=== PATIENT | male | born 1950 | race African-American/Black ===

== ENCOUNTER 2021-06-07 06:58 | Emergency (ER) | payer SELFPAY ==
[2021-06-07 07:33] VITALS: BP 165/89; PULSE 96; TEMP 98.2; BMI 22.8
== END 2021-06-07 08:00 | disposition home or self-care (01) ==
LOC: JER 06:58 → JERFT 06:58
DX: Z76.0 Encounter for issue of repeat prescription (principal)
CPT/HCPCS: 99281-25

== ENCOUNTER 2021-07-11 13:26 | Emergency (ER) | payer OTHER ==
[2021-07-11 13:31] VITALS: BP 162/94; PULSE 97; TEMP 97.8; BMI 24.3
== END 2021-07-11 14:11 | disposition home or self-care (01) ==
LOC: JERFT 13:26
DX: F31.9 Bipolar disorder, unspecified (principal); Z76.0 Encounter for issue of repeat prescription
CPT/HCPCS: 99281-25

== ENCOUNTER 2022-05-03 17:49 | Observation (INO) | payer OTHER ==
[2022-05-03] MEDS ORDERED: SODIUM CHLORIDE 0.9% 1000 ML INFUS.BAG IV ONE (18:17)
[2022-05-03] MEDS ORDERED: CEFTRIAXONE 1,000 MG in DEXTROSE 5%-WATER - 50 ML IVPB ONE (18:17)
[2022-05-03] MEDS ORDERED: ACETAMINOPHEN 1000 MG/100 ML BAG IVPB ONE (18:17)
[2022-05-03] MEDS ORDERED: CEFTRIAXONE 1 GM/50 ML BAG ONE (18:19)
[2022-05-03] MEDS ORDERED: ACETAMINOPHEN INJECTION 100 ML IVPB ONE (18:19)
[2022-05-03 18:44] LABS: VENOUS BASE EXCESS -1.6 mmol/L (-2-2); VENOUS PH 7.411 (7.310-7.410)
[2022-05-03 18:51] LABS: BASO % 2.3 % (0-2.0); EOS % 0.4 % (0-4.5); HEMATOCRIT 44.5 % (35.4-49); HEMOGLOBIN 14.8 GM/dL (11.7-16.9); LYMPH % 6.9 % (8-40); MCH 28.5 pg (25.7-33.7); MCHC 33.2 g/dl (32.0-35.9); MEAN PLT VOLUME 8.1 fl (7.5-11.1); MONO % 10.1 % (3.8-10.2); NEUT % 80.3 % (42.8-82.8); PLATELET COUNT 292 10^3/uL (134-434); RBC 5.17 M/mm3 (4.00-5.60); RDW 15.5 % (11.9-15.9); WHITE BLOOD COUNT 11.6 K/mm3 (4.0-10.0)
[2022-05-03 18:59] LABS: INR 1.21 (0.83-1.09)
[2022-05-03 19:02] LABS: ACTIVATED PTT 32.4 SECONDS (25.2-36.5)
[2022-05-03 19:05] LABS: CHLORIDE 108 mmol/L (98-107); SODIUM 136 mmol/L (136-145)
[2022-05-03 19:08] LABS: ALBUMIN 3.8 g/dl (3.4-5.0); ANION GAP 6 MMOL/L (8-16); BLOOD UREA NITROGEN 19.4 mg/dL (7-18); CO2 22 mmol/L (21-32); GLUCOSE,RANDOM 106 mg/dL (74-106); MAGNESIUM 2.2 mg/dL (1.8-2.4)
[2022-05-03 19:11] LABS: CREATININE 2.3 mg/dL (0.55-1.3); SGOT/AST 13 U/L (15-37); SGPT/ALT 13 U/L (13-61)
[2022-05-03 19:12] LABS: BILIRUBIN,TOTAL 0.6 mg/dL (0.2-1); TOT PROT 8.3 g/dl (6.4-8.2)
[2022-05-03 19:14] LABS: ALK PHOS 196 U/L (45-117); LACTIC ACID 2.5 mmol/L (0.4-2.0)
[2022-05-03 22:38] LABS: LACTIC ACID 2.1 mmol/L (0.4-2.0)
[2022-05-04] MEDS ORDERED: SODIUM CHLORIDE 1,000 ML IV SCH ×2 (00:15)
[2022-05-04] MEDS ORDERED: REMDESIVIR 200 MG in SODIUM CHLORIDE 250 ML IVPB ONE (01:21)
[2022-05-04 04:26] LABS: LDH 159 U/L (87-246)
[2022-05-04] MEDS: HEPARIN NA (PORCINE) 5,000 UNITS/ML 1ML VIAL SQ SCH ×3 (06:05→22:45)
[2022-05-04 06:34] LABS: BASO % 0.7 % (0-2.0); EOS % 0.3 % (0-4.5); HEMATOCRIT 41.8 % (35.4-49); HEMOGLOBIN 13.8 GM/dL (11.7-16.9); MCH 28.6 pg (25.7-33.7); MEAN CELL VOLUME 86.8 fl (80-96); MEAN PLT VOLUME 8.2 fl (7.5-11.1); PLATELET COUNT 251 10^3/uL (134-434); RBC 4.81 M/mm3 (4.00-5.60); RDW 15.1 % (11.9-15.9)
[2022-05-04 07:02] LABS: ALBUMIN 3.2 g/dl (3.4-5.0); BLOOD UREA NITROGEN 17.3 mg/dL (7-18); CALCIUM 9.1 mg/dL (8.5-10.1)
[2022-05-04 07:05] LABS: PHOSPHOROUS 2.4 mg/dL (2.5-4.9)
[2022-05-04 07:06] LABS: CREATININE 1.7 mg/dL (0.55-1.3)
[2022-05-04 07:07] LABS: BILIRUBIN,TOTAL 0.4 mg/dL (0.2-1); TOT PROT 7.2 g/dl (6.4-8.2)
[2022-05-04 08:31] LABS: EPI CELLS 23 /uL (0-25.1); HYALINE CASTS 2 /uL (0-3.1); URINE APPEARANCE CLEAR; URINE BACTERIA 48 /uL (0-1359); URINE BILIRUBIN NEGATIVE (NEGATIVE); URINE COLOR YELLOW; URINE GLUCOSE (UA) NEGATIVE (NEGATIVE); URINE KETONE NEGATIVE (NEGATIVE); URINE LEUK ESTERASE 1+ (NEGATIVE); URINE NITRITE NEGATIVE (NEGATIVE); URINE PROTEIN 1+ (NEGATIVE); URINE RBC 10 /uL (0-23.9); URINE UROBILINOGEN 0.2 mg/dL (0.2-1.0); URINE WBC 75 /uL (0-25.8)
[2022-05-04] MEDS ORDERED: ARIPiprazole 5 MG TABLET ONE (09:12)
[2022-05-04] MEDS ORDERED: amLODIPine BESYLATE 10 MG TABLET (FP) ONE (09:12)
[2022-05-04 10:07] LABS: MAGNESIUM 2.1 mg/dL (1.8-2.4)
[2022-05-04] MEDS: ARIPiprazole 5 MG TABLET PO SCH (10:31)
[2022-05-04] MEDS: amLODIPine BESYLATE 10 MG TABLET (FP) PO SCH (10:32)
[2022-05-04 11:54] VITALS: BMI 26.4
[2022-05-04 12:47] LABS: EPI CELLS 20 /uL (0-25.1); HYALINE CASTS 2 /uL (0-3.1); PH,URINE 7.5 (5.0-8.0); URINE APPEARANCE CLEAR; URINE BILIRUBIN NEGATIVE (NEGATIVE); URINE COLOR YELLOW; URINE GLUCOSE (UA) NEGATIVE (NEGATIVE); URINE KETONE NEGATIVE (NEGATIVE); URINE LEUK ESTERASE 1+ (NEGATIVE); URINE NITRITE POSITIVE (NEGATIVE); URINE PROTEIN TRACE (NEGATIVE); URINE RBC 13 /uL (0-23.9); URINE UROBILINOGEN 0.2 mg/dL (0.2-1.0); URINE WBC 71 /uL (0-25.8)
[2022-05-04 13:16] LABS: URINE BACTERIA 5.7 /uL (0-1359)
[2022-05-04] MEDS: ACETAMINOPHEN 325 MG TABLET (FP) PO PRN (17:00)
[2022-05-04] MEDS ORDERED: REMDESIVIR 100 MG in SODIUM CHLORIDE 250 ML IVPB ONE (22:00)
[2022-05-05] MEDS: HEPARIN NA (PORCINE) 5,000 UNITS/ML 1ML VIAL SQ SCH ×3 (06:01→22:44)
[2022-05-05 08:17] LABS: BASO % 0.8 % (0-2.0); EOS % 0.3 % (0-4.5); HEMATOCRIT 44.1 % (35.4-49); HEMOGLOBIN 14.7 GM/dL (11.7-16.9); LYMPH % 22.2 % (8-40); MCH 28.7 pg (25.7-33.7); MCHC 33.3 g/dl (32.0-35.9); MEAN CELL VOLUME 86.2 fl (80-96); MEAN PLT VOLUME 8.4 fl (7.5-11.1); MONO % 16.3 % (3.8-10.2); NEUT % 60.4 % (42.8-82.8); PLATELET COUNT 243 10^3/uL (134-434); RBC 5.12 M/mm3 (4.00-5.60); RDW 15.5 % (11.9-15.9); WHITE BLOOD COUNT 6.8 K/mm3 (4.0-10.0)
[2022-05-05 08:29] LABS: CALCIUM 9.2 mg/dL (8.5-10.1)
[2022-05-05 08:30] LABS: BLOOD UREA NITROGEN 20.6 mg/dL (7-18)
[2022-05-05 08:33] LABS: CREATININE 1.5 mg/dL (0.55-1.3)
[2022-05-05] MEDS: amLODIPine BESYLATE 10 MG TABLET (FP) PO SCH (10:28)
[2022-05-05] MEDS: ARIPiprazole 5 MG TABLET PO SCH (11:36)
[2022-05-05] MEDS: LACTATED RINGERS SOLUTION 1,000 ML/1,000 ML INFUS.BAG IV SCH (19:37)
[2022-05-05] MEDS: ACETAMINOPHEN 325 MG TABLET (FP) PO PRN (19:58)
[2022-05-05] MEDS ORDERED: REMDESIVIR 100 MG in SODIUM CHLORIDE 250 ML IVPB ONE (22:00)
[2022-05-06] MEDS: HEPARIN NA (PORCINE) 5,000 UNITS/ML 1ML VIAL SQ SCH ×3 (06:49→21:02)
[2022-05-06 08:00] LABS: HEMATOCRIT 41.5 % (35.4-49); HEMOGLOBIN 13.8 GM/dL (11.7-16.9); MCH 28.7 pg (25.7-33.7); MCHC 33.3 g/dl (32.0-35.9); MEAN PLT VOLUME 8.9 fl (7.5-11.1); PLATELET COUNT 230 10^3/uL (134-434); RBC 4.82 M/mm3 (4.00-5.60); RDW 15.3 % (11.9-15.9); WHITE BLOOD COUNT 5.4 K/mm3 (4.0-10.0)
[2022-05-06 08:15] LABS: BLOOD UREA NITROGEN 20.8 mg/dL (7-18); CALCIUM 8.5 mg/dL (8.5-10.1); MAGNESIUM 1.9 mg/dL (1.8-2.4)
[2022-05-06 08:19] LABS: CREATININE 1.4 mg/dL (0.55-1.3); PHOSPHOROUS 3.4 mg/dL (2.5-4.9)
[2022-05-06] MEDS: amLODIPine BESYLATE 10 MG TABLET (FP) PO SCH (09:16)
[2022-05-06] MEDS: ARIPiprazole 5 MG TABLET PO SCH (09:16)
[2022-05-06] MEDS: DEXAMETHASONE 4 MG TABLET (FP) PO SCH (13:39)
[2022-05-06] MEDS: LACTATED RINGERS SOLUTION 1,000 ML/1,000 ML INFUS.BAG IV SCH (19:38)
[2022-05-06] MEDS ORDERED: REMDESIVIR 100 MG in SODIUM CHLORIDE 250 ML IVPB ONE (22:00)
[2022-05-07] MEDS: HEPARIN NA (PORCINE) 5,000 UNITS/ML 1ML VIAL SQ SCH ×3 (06:55→22:13)
[2022-05-07 07:41] LABS: BLOOD UREA NITROGEN 25.4 mg/dL (7-18)
[2022-05-07 07:44] LABS: CREATININE 1.4 mg/dL (0.55-1.3)
[2022-05-07 07:46] LABS: CALCIUM 9.8 mg/dL (8.5-10.1)
[2022-05-07 08:07] LABS: HEMATOCRIT 44.5 % (35.4-49); MCH 28.9 pg (25.7-33.7); MCHC 33.8 g/dl (32.0-35.9); MEAN CELL VOLUME 85.7 fl (80-96); MEAN PLT VOLUME 8.7 fl (7.5-11.1); PLATELET COUNT 235 10^3/uL (134-434); RBC 5.19 M/mm3 (4.00-5.60); RDW 15.3 % (11.9-15.9); WHITE BLOOD COUNT 5.5 K/mm3 (4.0-10.0)
[2022-05-07] MEDS: DEXAMETHASONE 4 MG TABLET (FP) PO SCH (10:05)
[2022-05-07] MEDS: ARIPiprazole 5 MG TABLET PO SCH (10:05)
[2022-05-07] MEDS: amLODIPine BESYLATE 10 MG TABLET (FP) PO SCH (10:06)
[2022-05-07] MEDS ORDERED: REMDESIVIR 100 MG in SODIUM CHLORIDE 250 ML IVPB ONE (22:00)
[2022-05-08] MEDS: HEPARIN NA (PORCINE) 5,000 UNITS/ML 1ML VIAL SQ SCH (06:00)
[2022-05-08 07:58] LABS: HEMATOCRIT 42.6 % (35.4-49); HEMOGLOBIN 14.3 GM/dL (11.7-16.9); MCH 28.6 pg (25.7-33.7); MCHC 33.5 g/dl (32.0-35.9); MEAN CELL VOLUME 85.4 fl (80-96); MEAN PLT VOLUME 8.8 fl (7.5-11.1); PLATELET COUNT 275 10^3/uL (134-434); RBC 4.99 M/mm3 (4.00-5.60); RDW 15.4 % (11.9-15.9); WHITE BLOOD COUNT 14.8 K/mm3 (4.0-10.0)
[2022-05-08 08:12] LABS: CALCIUM 9.4 mg/dL (8.5-10.1)
[2022-05-08 08:13] LABS: BLOOD UREA NITROGEN 32.5 mg/dL (7-18)
[2022-05-08 08:16] LABS: CREATININE 1.5 mg/dL (0.55-1.3); PHOSPHOROUS 2.9 mg/dL (2.5-4.9)
[2022-05-08 09:18] VITALS: RESP 20
[2022-05-08] MEDS: ARIPiprazole 5 MG TABLET PO SCH (09:29)
[2022-05-08] MEDS: DEXAMETHASONE 4 MG TABLET (FP) PO SCH (09:29)
[2022-05-08] MEDS: amLODIPine BESYLATE 10 MG TABLET (FP) PO SCH (09:29)
[2022-05-08 14:13] VITALS: BP 151/81; PULSE 90; TEMP 97.6
[2022-05-08] MEDS ORDERED: REMDESIVIR 100 MG in SODIUM CHLORIDE 250 ML IVPB ONE (22:00)
== END 2022-05-08 16:44 | disposition home or self-care (01) ==
LOC: JER 17:49 → JERBED 22:46 → J4W 05-04 11:25
PROVIDERS: ADMIT Internal Medicine; ATTEND Internal Medicine
PROC: 3E033NZ Introduction of Analgesics, Hypnotics, Sedatives into Peripheral Vein, Percutaneous Approach (ICD-10-PCS; principal; 2022-05-03)
PROC: 3E03329 Introduction of Other Anti-infective into Peripheral Vein, Percutaneous Approach (ICD-10-PCS; 2022-05-03)
PROC: 3E023GC Introduction of Other Therapeutic Substance into Muscle, Percutaneous Approach (ICD-10-PCS; 2022-05-03)
PROC: 3E0337Z Introduction of Electrolytic and Water Balance Substance into Peripheral Vein, Percutaneous Approach (ICD-10-PCS; 2022-05-03)
PROC: 3E033GC Introduction of Other Therapeutic Substance into Peripheral Vein, Percutaneous Approach (ICD-10-PCS; 2022-05-03)
PROC: 3E0337Z Introduction of Electrolytic and Water Balance Substance into Peripheral Vein, Percutaneous Approach (ICD-10-PCS; 2022-05-03)
DX: U07.1 COVID-19 (principal); N17.9 Acute kidney failure, unspecified; I10 Essential (primary) hypertension; F31.9 Bipolar disorder, unspecified; R79.89 Other specified abnormal findings of blood chemistry
CPT/HCPCS: 0241U-QW; 36415; 71045-TC-FY; 76775-TC; 80048; 80053; 81003; 82436; 82550; 82553; 82570; 82728; 82803; 83605; 83615; 83735; 84100; 84133; 84300; 84443; 84484; 85025; 85027; 85379; 85610; 85730; 86140; 86850; 86900; 86901; 87040; 87086; 93005; 93010; 96361; 96365; 96366; 96367; 96368; 96372; 96375; 99285-25; C9399; G0378; J1644

== ENCOUNTER 2022-09-22 10:17 | Emergency (ER) | payer SELFPAY ==
[2022-09-22 10:28] VITALS: BP 167/95; PULSE 97; RESP 16; TEMP 98.2; BMI 30.8
== END 2022-09-22 11:36 | disposition home or self-care (01) ==
LOC: JERFT 10:17
DX: Z76.0 Encounter for issue of repeat prescription (principal)
CPT/HCPCS: 99281-25

== ENCOUNTER 2022-12-11 11:40 | Inpatient (IN) | payer OTHER ==
[2022-12-11 13:06] LABS: BASO % 0.7 % (0-2.0); EOS % 0.4 % (0-4.5); HEMATOCRIT 46.8 % (35.4-49); HEMOGLOBIN 15.4 GM/dL (11.7-16.9); LYMPH % 11.8 % (8-40); MCH 28.1 pg (25.7-33.7); MCHC 32.8 g/dl (32.0-35.9); MEAN CELL VOLUME 85.8 fl (80-96); MEAN PLT VOLUME 8.3 fl (7.5-11.1); MONO % 7.5 % (3.8-10.2); NEUT % 79.6 % (42.8-82.8); PLATELET COUNT 275 10^3/uL (134-434); RBC 5.46 M/mm3 (4.00-5.60); RDW 15.3 % (11.9-15.9); WHITE BLOOD COUNT 6.4 K/mm3 (4.0-10.0)
[2022-12-11 13:20] LABS: EPI CELLS 1 /uL (0-25.1); HYALINE CASTS 0 /uL (0-3.1); PH,URINE 6.5 (5.0-8.0); URINE APPEARANCE CLOUDY; URINE BACTERIA 2570 /uL (0-1359); URINE BILIRUBIN NEGATIVE (NEGATIVE); URINE COLOR YELLOW; URINE GLUCOSE (UA) NEGATIVE (NEGATIVE); URINE KETONE NEGATIVE (NEGATIVE); URINE LEUK ESTERASE 2+ (NEGATIVE); URINE NITRITE POSITIVE (NEGATIVE); URINE PROTEIN TRACE (NEGATIVE); URINE UROBILINOGEN 0.2 mg/dL (0.2-1.0); URINE WBC 399 /uL (0-25.8)
[2022-12-11 13:24] LABS: CALCIUM 10.5 mg/dL (8.5-10.1); POTASSIUM 4.4 mmol/L (3.5-5.1)
[2022-12-11 13:25] LABS: ALBUMIN 3.4 g/dl (3.4-5.0); BLOOD UREA NITROGEN 10.4 mg/dL (7-18); MAGNESIUM 1.8 mg/dL (1.8-2.4)
[2022-12-11 13:28] LABS: CREATININE 1.6 mg/dL (0.55-1.3)
[2022-12-11 13:30] LABS: BILIRUBIN,TOTAL 0.9 mg/dL (0.2-1)
[2022-12-11 13:43] LABS: METHADONE, UR NEGATIVE (NEGATIVE); OPIATES, URI NEGATIVE (NEGATIVE); PHENCYCLIDINE,URINE NEGATIVE (NEGATIVE); URINE AMPHETAMINES NEGATIVE (NEGATIVE); URINE BARBITURATES NEGATIVE (NEGATIVE)
[2022-12-11 13:44] LABS: URINE BENZODIAZEPINES NEGATIVE (NEGATIVE)
[2022-12-11 13:46] LABS: COCAINE, UR NEGATIVE (NEGATIVE)
[2022-12-11] MEDS ORDERED: CEFTRIAXONE 1 GM/50 ML BAG ONE (13:47)
[2022-12-11 14:27] LABS: YEAST NEGATIVE (NEGATIVE)
[2022-12-11] MEDS ORDERED: SODIUM CHLORIDE 0.9% 500 ML INFUS.BAG IV ONE (16:17)
[2022-12-11 16:36] VITALS: BMI 22.4
[2022-12-11] MEDS ORDERED: SODIUM CHLORIDE 1,000 ML IV ONE (17:00)
[2022-12-11] MEDS: HEPARIN NA (PORCINE) 5,000 UNITS/ML 1ML VIAL SQ SCH (21:25)
[2022-12-12] MEDS: HEPARIN NA (PORCINE) 5,000 UNITS/ML 1ML VIAL SQ SCH ×2 (06:19→13:28)
[2022-12-12 07:44] LABS: BASO % 0.8 % (0-2.0); EOS % 1.3 % (0-4.5); HEMATOCRIT 42.8 % (35.4-49); HEMOGLOBIN 13.9 GM/dL (11.7-16.9); LYMPH % 21.9 % (8-40); MCH 27.9 pg (25.7-33.7); MCHC 32.4 g/dl (32.0-35.9); MEAN CELL VOLUME 86.2 fl (80-96); MEAN PLT VOLUME 8.6 fl (7.5-11.1); MONO % 9.5 % (3.8-10.2); NEUT % 66.5 % (42.8-82.8); PLATELET COUNT 269 10^3/uL (134-434); RBC 4.97 M/mm3 (4.00-5.60); RDW 15.7 % (11.9-15.9); WHITE BLOOD COUNT 5.9 K/mm3 (4.0-10.0)
[2022-12-12 08:09] LABS: POTASSIUM 3.7 mmol/L (3.5-5.1)
[2022-12-12 08:11] LABS: BLOOD UREA NITROGEN 8.7 mg/dL (7-18); CALCIUM 9.7 mg/dL (8.5-10.1)
[2022-12-12 08:12] LABS: MAGNESIUM 1.9 mg/dL (1.8-2.4)
[2022-12-12 08:16] LABS: CREATININE 1.3 mg/dL (0.55-1.3); PHOSPHOROUS 2.5 mg/dL (2.5-4.9)
[2022-12-12] MEDS ORDERED: TAMSULOSIN HCL 0.4 MG CAP PO SCH (08:30)
[2022-12-12] MEDS ORDERED: ARIPiprazole 5 MG TABLET PO SCH (10:00)
[2022-12-12] MEDS ORDERED: CEFTRIAXONE 1 GM in DEXTROSE 5%-WATER - 50 ML IVPB SCH (10:00)
[2022-12-12] MEDS ORDERED: FINASTERIDE 5 MG TABLET (FP) PO SCH (10:00)
[2022-12-12] MEDS ORDERED: amLODIPine BESYLATE 10 MG TABLET (FP) PO SCH (10:00)
[2022-12-12 14:47] VITALS: BP 136/67; PULSE 75; RESP 18; TEMP 98.1
== END 2022-12-12 14:43 | disposition home or self-care (01) | DRG 689 ==
LOC: JER 11:40 → JERBED 14:36 → J5S 15:53
PROVIDERS: ADMIT Internal Medicine
DX: N39.0 Urinary tract infection, site not specified (principal); G93.41 Metabolic encephalopathy; F03.911 Unspecified dementia, unspecified severity, with agitation; Q61.3 Polycystic kidney, unspecified; E03.9 Hypothyroidism, unspecified; F31.9 Bipolar disorder, unspecified; I12.9 Hypertensive chronic kidney disease with stage 1 through stage 4 chronic kidney disease, or unspecified chronic kidney disease; N18.9 Chronic kidney disease, unspecified; E78.5 Hyperlipidemia, unspecified; N40.1 Benign prostatic hyperplasia with lower urinary tract symptoms; R35.1 Nocturia
CPT/HCPCS: 36415; 70450-TC; 71045-TC-FY; 80048; 80053; 80307; 81003; 82607; 82746; 83735; 84100; 84443; 85025; 87086; 93005; 93010; 99285-25; J1644

== ENCOUNTER 2023-01-03 08:04 | Observation (INO) | payer MEDICARE, OTHER ==
[2023-01-03 08:31] VITALS: BMI 22.8
[2023-01-03 10:32] LABS: EOS % 0.7 % (0-4.5); HEMATOCRIT 45.6 % (35.4-49); HEMOGLOBIN 15.7 GM/dL (11.7-16.9); LYMPH % 18.2 % (8-40); MCH 29.2 pg (25.7-33.7); MCHC 34.5 g/dl (32.0-35.9); MEAN CELL VOLUME 84.7 fl (80-96); MEAN PLT VOLUME 8.2 fl (7.5-11.1); NEUT % 71.1 % (42.8-82.8); PLATELET COUNT 313 10^3/uL (134-434); RBC 5.39 M/mm3 (4.00-5.60); WHITE BLOOD COUNT 5.3 K/mm3 (4.0-10.0)
[2023-01-03 10:38] LABS: INR 1.08 (0.83-1.09); PROTHROMBIN TIME (PATIENT) 12.5 SEC (9.7-13.0)
[2023-01-03 10:40] LABS: ACTIVATED PTT 28.6 SECONDS (25.2-36.5)
[2023-01-03 10:50] LABS: POTASSIUM 4.4 mmol/L (3.5-5.1)
[2023-01-03 10:51] LABS: CALCIUM 10.4 mg/dL (8.5-10.1)
[2023-01-03 10:52] LABS: ALBUMIN 3.5 g/dl (3.4-5.0); BLOOD UREA NITROGEN 15.6 mg/dL (7-18)
[2023-01-03 10:55] LABS: CREATININE 1.8 mg/dL (0.55-1.3)
[2023-01-03 10:57] LABS: BILIRUBIN,TOTAL 0.8 mg/dL (0.2-1)
[2023-01-03 15:38] LABS: EPI CELLS >36 /uL (0-25.1); HYALINE CASTS 6 /uL (0-3.1); URINE APPEARANCE CLEAR; URINE BACTERIA 15 /uL (0-1359); URINE BILIRUBIN NEGATIVE (NEGATIVE); URINE COLOR YELLOW; URINE GLUCOSE (UA) NEGATIVE (NEGATIVE); URINE KETONE TRACE (NEGATIVE); URINE LEUK ESTERASE 1+ (NEGATIVE); URINE NITRITE NEGATIVE (NEGATIVE); URINE PROTEIN 1+ (NEGATIVE); URINE RBC 21 /uL (0-23.9); URINE WBC 95 /uL (0-25.8)
[2023-01-03 16:11] LABS: URINE CRYSTALS FEW /hpf
[2023-01-03] MEDS ORDERED: ACETAMINOPHEN 325 MG TABLET (FP) PO PRN (16:19)
[2023-01-03] MEDS ORDERED: LACTATED RINGERS SOLUTION 1,000 ML IV SCH (16:30)
[2023-01-03] MEDS ORDERED: HEPARIN NA (PORCINE) 5,000 UNITS/ML 1ML VIAL ONE (22:06)
[2023-01-03] MEDS: HEPARIN NA (PORCINE) 5,000 UNITS/ML 1ML VIAL SQ SCH (22:45)
[2023-01-04 04:36] VITALS: RESP 18
[2023-01-04 06:40] VITALS: TEMP 98.1
[2023-01-04] MEDS: HEPARIN NA (PORCINE) 5,000 UNITS/ML 1ML VIAL SQ SCH (06:41)
[2023-01-04] MEDS ORDERED: TAMSULOSIN HCL 0.4 MG CAP PO SCH (08:30)
[2023-01-04 08:36] LABS: INR 1.07 (0.83-1.09); PROTHROMBIN TIME (PATIENT) 12.4 SEC (9.7-13.0)
[2023-01-04 08:40] LABS: ACTIVATED PTT 34.3 SECONDS (25.2-36.5)
[2023-01-04 09:29] LABS: ALBUMIN 3.7 g/dl (3.4-5.0); BILIRUBIN,TOTAL 0.8 mg/dl (0.2-1); BLOOD UREA NITROGEN 11.9 mg/dl (7-18); CALCIUM 10.3 mg/dl (8.5-10.1); CREATININE 1.4 mg/dl (0.6-1.3); MAGNESIUM 1.8 mg/dL (1.8-2.4); PHOSPHOROUS 2.705 (2.5-4.9); POTASSIUM 3.7 mmol/L (3.5-5.1); SGOT/AST 12.611 U/L (15-37); SGPT/ALT 4.343 U/L (7-52); TOT PROT 6.2 g/dl (6.4-8.2)
[2023-01-04] MEDS ORDERED: ARIPiprazole 5 MG TABLET PO SCH (10:00)
[2023-01-04 10:08] VITALS: BP 166/70; PULSE 58
[2023-01-04 12:08] LABS: BASO % 0.4 % (0-2.0); EOS % 1.8 % (0-4.5); HEMATOCRIT 43.5 % (35.4-49); HEMOGLOBIN 14.7 GM/dL (11.7-16.9); LYMPH % 32.5 % (8-40); MCH 28.7 pg (25.7-33.7); MCHC 33.8 g/dl (32.0-35.9); MEAN CELL VOLUME 85.1 fl (80-96); MEAN PLT VOLUME 8.5 fl (7.5-11.1); MONO % 9.8 % (3.8-10.2); NEUT % 55.5 % (42.8-82.8); PLATELET COUNT 297 10^3/uL (134-434); RBC 5.11 M/mm3 (4.00-5.60); WHITE BLOOD COUNT 5.4 K/mm3 (4.0-10.0)
== END 2023-01-04 12:49 | disposition home or self-care (01) ==
LOC: JER 08:04 → JERBED 14:16 → FM/S 01-04 02:15
PROVIDERS: ADMIT Internal Medicine
PROC: 3E023GC Introduction of Other Therapeutic Substance into Muscle, Percutaneous Approach (ICD-10-PCS; principal; 2023-01-03)
PROC: 3E0337Z Introduction of Electrolytic and Water Balance Substance into Peripheral Vein, Percutaneous Approach (ICD-10-PCS; 2023-01-03)
DX: N39.0 Urinary tract infection, site not specified (principal); F03.90 Unspecified dementia, unspecified severity, without behavioral disturbance, psychotic disturbance, mood disturbance, and anxiety; F31.9 Bipolar disorder, unspecified; I13.10 Hypertensive heart and chronic kidney disease without heart failure, with stage 1 through stage 4 chronic kidney disease, or unspecified chronic kidney disease
CPT/HCPCS: 36415; 71046-TC-FY; 80053; 81003; 82962; 83735; 84100; 84484; 85025; 85610; 85730; 93005; 93010; 96360; 96372; 97116-GP; 97162-GP; 99285-25; G0378; J1644

== ENCOUNTER 2023-06-21 11:37 | Emergency (ER) | payer OTHER ==
[2023-06-21 12:00] VITALS: BP 168/86; PULSE 70; RESP 18; TEMP 98; BMI 21.2
== END 2023-06-21 12:57 | disposition home or self-care (01) ==
LOC: JERFT 11:37
DX: Z76.0 Encounter for issue of repeat prescription (principal)
CPT/HCPCS: 99281-25

== ENCOUNTER 2023-08-18 22:43 | Inpatient (IN) | payer OTHER ==
[2023-08-18] MEDS: SODIUM CHLORIDE 0.9% 1000 ML INFUS.BAG IV STA (23:29)
[2023-08-19 00:08] LABS: HEMATOCRIT 45.9 % (35.4-49); HEMOGLOBIN 15.1 GM/dL (11.7-16.9); MCH 28.2 pg (25.7-33.7); MCHC 32.9 g/dl (32.0-35.9); MEAN CELL VOLUME 85.8 fl (80-96); MEAN PLT VOLUME 8.3 fl (7.5-11.1); PLATELET COUNT 205 10^3/uL (134-434); RBC 5.36 M/mm3 (4.00-5.60); RDW 15.2 % (11.9-15.9); WHITE BLOOD COUNT 21.1 K/mm3 (4.0-10.0)
[2023-08-19 00:27] LABS: POTASSIUM 4.3 mmol/L (3.5-5.1)
[2023-08-19 00:28] LABS: EPI CELLS 1 /uL (0-25.1); HYALINE CASTS 2 /uL (0-3.1); URINE APPEARANCE CLOUDY; URINE BACTERIA 1430 /uL (0-1359); URINE BILIRUBIN NEGATIVE (NEGATIVE); URINE COLOR YELLOW; URINE GLUCOSE (UA) NEGATIVE (NEGATIVE); URINE KETONE NEGATIVE (NEGATIVE); URINE LEUK ESTERASE 2+ (NEGATIVE); URINE NITRITE POSITIVE (NEGATIVE); URINE PROTEIN 2+ (NEGATIVE); URINE RBC 164 /uL (0-23.9); URINE WBC 542 /uL (0-25.8)
[2023-08-19 00:29] LABS: CALCIUM 9.9 mg/dL (8.5-10.1)
[2023-08-19 00:30] LABS: ALBUMIN 3.6 g/dl (3.4-5.0); BLOOD UREA NITROGEN 20.9 mg/dL (7-18)
[2023-08-19 00:33] LABS: CREATININE 2.2 mg/dL (0.55-1.3)
[2023-08-19 00:34] LABS: TOT PROT 7.7 g/dl (6.4-8.2)
[2023-08-19 00:35] LABS: BILIRUBIN,TOTAL 1.5 mg/dL (0.2-1)
[2023-08-19 00:52] LABS: INR 1.07 (0.83-1.09); PROTHROMBIN TIME (PATIENT) 12.1 SEC (9.7-13.0)
[2023-08-19 00:53] LABS: LACTIC ACID 4.2 mmol/L (0.4-2.0)
[2023-08-19] MEDS: CEFTRIAXONE 1,000 MG in DEXTROSE 5%-WATER - 50 ML IVPB ONE (00:53)
[2023-08-19 00:55] LABS: ACTIVATED PTT 27.8 SECONDS (25.2-36.5)
[2023-08-19] MEDS ORDERED: CEFTRIAXONE 1 GM/50 ML BAG ONE (01:04)
[2023-08-19 02:58] LABS: ANISOCYTOSIS 0; MACROCYTOSIS 0; ROULEAU 1+
[2023-08-19] MEDS ORDERED: SODIUM CHLORIDE 1,000 ML IV SCH (04:30)
[2023-08-19] MEDS ORDERED: PIPERACILLIN/TAZOB 2.25 GM 2.25 GM/50 ML BAG IVPB ONE ×2 (04:32→09:47)
[2023-08-19] MEDS: PIPERACILLIN/TAZOB 2.25 GM 2.25 GM in DEXTROSE 5%-WATER - 50 ML IVPB SCH (04:32)
[2023-08-19 04:41] LABS: LACTIC ACID 3.1 mmol/L (0.4-2.0)
[2023-08-19] MEDS: VANCOMYCIN 1,000 MG in DEXTROSE 5%-WATER - 250 ML IVPB SCH (04:47)
[2023-08-19] MEDS: LACTATED RINGERS SOLUTION 1,000 ML/1,000 ML INFUS.BAG IV SCH ×2 (04:47→15:11)
[2023-08-19] MEDS ORDERED: HEPARIN NA (PORCINE) 5,000 UNITS/ML 1ML VIAL ONE (04:49)
[2023-08-19] MEDS ORDERED: VANCOMYCIN 1 GRAM (PRE-DOCKED) 1,000 MG/250 ML BAG IVPB ONE (04:49)
[2023-08-19] MEDS: HEPARIN NA (PORCINE) 5,000 UNITS/ML 1ML VIAL SQ SCH (05:00)
[2023-08-19] MEDS: ASPIRIN 81 MG CHEWABLE TABLETS PO ONE (05:25)
[2023-08-19 06:21] LABS: HEMATOCRIT 40.4 % (35.4-49); HEMOGLOBIN 13.3 GM/dL (11.7-16.9); MCH 28.4 pg (25.7-33.7); MEAN CELL VOLUME 86.3 fl (80-96); MEAN PLT VOLUME 8.5 fl (7.5-11.1); PLATELET COUNT 168 10^3/uL (134-434); RBC 4.68 M/mm3 (4.00-5.60); RDW 15.1 % (11.9-15.9); WHITE BLOOD COUNT 23.1 K/mm3 (4.0-10.0)
[2023-08-19 06:39] LABS: POTASSIUM 3.5 mmol/L (3.5-5.1)
[2023-08-19 06:41] LABS: BLOOD UREA NITROGEN 20.5 mg/dL (7-18); MAGNESIUM 1.9 mg/dL (1.8-2.4)
[2023-08-19 06:42] LABS: ALBUMIN 2.9 g/dl (3.4-5.0)
[2023-08-19 06:44] LABS: PHOSPHOROUS 1.9 mg/dL (2.5-4.9)
[2023-08-19 06:46] LABS: BILIRUBIN,TOTAL 1.5 mg/dL (0.2-1)
[2023-08-19 06:47] LABS: CHOLESTEROL 121 mg/dL (50-200)
[2023-08-19 06:48] LABS: LDL CHOLESTEROL (ONLY SJRH) 60 mg/dL (5-100)
[2023-08-19 06:51] LABS: HDL CHOLESTEROL 59 mg/dL (40-60)
[2023-08-19] MEDS ORDERED: NAPH,MB-DB/K PH,MBDB POWDER PACKET ONE (09:46)
[2023-08-19] MEDS: NAPH,MB-DB/K PH,MBDB POWDER PACKET PO ONE (12:26)
[2023-08-19 13:13] LABS: POTASSIUM 4.2 mmol/L (3.5-5.1)
[2023-08-19 13:16] LABS: ALBUMIN 2.8 g/dl (3.4-5.0); CALCIUM 8.9 mg/dL (8.5-10.1)
[2023-08-19 13:17] LABS: BLOOD UREA NITROGEN 22.8 mg/dL (7-18)
[2023-08-19 13:18] LABS: BILIRUBIN,DIRECT 0.4 mg/dL (0.0-0.2)
[2023-08-19 13:20] LABS: CREATININE 2.1 mg/dL (0.55-1.3)
[2023-08-19 13:21] LABS: BILIRUBIN,TOTAL 1.5 mg/dL (0.2-1)
[2023-08-19 15:02] VITALS: BMI 22.4
[2023-08-19 15:25] LABS: ARTERIAL BLD GAS O2 SATURATION 97.3 % (95-98); ARTERIAL BLOOD GAS PO2 88.6 mmHg (80-100)
[2023-08-19 15:26] LABS: ALLENS TEST POSITIVE
[2023-08-19] MEDS: SODIUM CHLORIDE 1,000 ML IV SCH (17:07)
[2023-08-20] MEDS ORDERED: PIPERACILLIN/TAZOB 2.25 GM 2.25 GM in DEXTROSE 5%-WATER - 50 ML IVPB SCH (03:00)
[2023-08-20] MEDS: PIPERACILLIN/TAZOB 2.25 GM 2.25 GM in DEXTROSE 5%-WATER - 50 ML IVPB SCH (03:21)
[2023-08-20] MEDS ORDERED: VANCOMYCIN 1 GRAM (PRE-DOCKED) 1,000 MG/250 ML BAG IVPB SCH (05:00)
[2023-08-20 07:46] LABS: BASO % 0.5 % (0-2.0); EOS % 0.3 % (0-4.5); HEMATOCRIT 38.4 % (35.4-49); HEMOGLOBIN 12.8 GM/dL (11.7-16.9); LYMPH % 5.6 % (8-40); MCH 28.9 pg (25.7-33.7); MCHC 33.4 g/dl (32.0-35.9); MEAN CELL VOLUME 86.6 fl (80-96); MEAN PLT VOLUME 9.1 fl (7.5-11.1); NEUT % 87.6 % (42.8-82.8); PLATELET COUNT 148 10^3/uL (134-434); RBC 4.44 M/mm3 (4.00-5.60); RDW 15.5 % (11.9-15.9); WHITE BLOOD COUNT 18.9 K/mm3 (4.0-10.0)
[2023-08-20 07:58] LABS: POTASSIUM 3.8 mmol/L (3.5-5.1)
[2023-08-20 08:01] LABS: CALCIUM 8.5 mg/dL (8.5-10.1)
[2023-08-20 08:02] LABS: BLOOD UREA NITROGEN 28.8 mg/dL (7-18)
[2023-08-20 08:05] LABS: ALBUMIN 2.6 g/dl (3.4-5.0); CREATININE 2.3 mg/dL (0.55-1.3); PHOSPHOROUS 2.7 mg/dL (2.5-4.9)
[2023-08-20 08:10] LABS: BILIRUBIN,DIRECT 0.5 mg/dL (0.0-0.2)
[2023-08-20 08:11] LABS: BILIRUBIN,TOTAL 1.6 mg/dL (0.2-1); TOT PROT 5.7 g/dl (6.4-8.2)
[2023-08-20] MEDS: FINASTERIDE 5 MG TABLET (FP) PO SCH (10:08)
[2023-08-20] MEDS: ARIPiprazole 5 MG TABLET PO SCH (10:33)
[2023-08-21 08:34] LABS: HEMATOCRIT 38.3 % (35.4-49); HEMOGLOBIN 12.6 GM/dL (11.7-16.9); MCH 28.5 pg (25.7-33.7); MEAN CELL VOLUME 86.4 fl (80-96); MEAN PLT VOLUME 9.2 fl (7.5-11.1); PLATELET COUNT 150 10^3/uL (134-434); RBC 4.43 M/mm3 (4.00-5.60); WHITE BLOOD COUNT 12.9 K/mm3 (4.0-10.0)
[2023-08-21] MEDS: TAMSULOSIN HCL 0.4 MG CAP PO SCH (08:40)
[2023-08-21 08:57] LABS: POTASSIUM 3.8 mmol/L (3.5-5.1)
[2023-08-21 09:09] LABS: ALBUMIN 2.5 g/dl (3.4-5.0); BLOOD UREA NITROGEN 25.4 mg/dL (7-18); CALCIUM 8.7 mg/dL (8.5-10.1)
[2023-08-21 09:10] LABS: BILIRUBIN,TOTAL 1.7 mg/dL (0.2-1)
[2023-08-21 09:11] LABS: TOT PROT 5.9 g/dl (6.4-8.2)
[2023-08-21 09:12] LABS: CREATININE 2.2 mg/dL (0.55-1.3); PHOSPHOROUS 2.6 mg/dL (2.5-4.9)
[2023-08-21] MEDS: amLODIPine BESYLATE 10 MG TABLET (FP) PO SCH (11:21)
[2023-08-22 07:58] LABS: POTASSIUM 3.8 mmol/L (3.5-5.1)
[2023-08-22 08:05] LABS: CALCIUM 8.5 mg/dL (8.5-10.1)
[2023-08-22 08:06] LABS: MAGNESIUM 1.9 mg/dL (1.8-2.4)
[2023-08-22 08:09] LABS: PHOSPHOROUS 2.6 mg/dL (2.5-4.9)
[2023-08-22 08:17] LABS: HEMATOCRIT 38.5 % (35.4-49); MCH 28.9 pg (25.7-33.7); MCHC 33.8 g/dl (32.0-35.9); MEAN CELL VOLUME 85.6 fl (80-96); PLATELET COUNT 171 10^3/uL (134-434); WHITE BLOOD COUNT 8.9 K/mm3 (4.0-10.0)
[2023-08-23 09:44] LABS: HEMATOCRIT 38.5 % (35.4-49); HEMOGLOBIN 12.8 GM/dL (11.7-16.9); MCH 28.5 pg (25.7-33.7); MCHC 33.2 g/dl (32.0-35.9); MEAN PLT VOLUME 8.9 fl (7.5-11.1); PLATELET COUNT 169 10^3/uL (134-434); RBC 4.48 M/mm3 (4.00-5.60); RDW 15.2 % (11.9-15.9); WHITE BLOOD COUNT 9.1 K/mm3 (4.0-10.0)
[2023-08-23 10:08] LABS: POTASSIUM 3.7 mmol/L (3.5-5.1)
[2023-08-23 10:12] LABS: BLOOD UREA NITROGEN 16.5 mg/dL (7-18); CALCIUM 8.8 mg/dL (8.5-10.1); MAGNESIUM 1.8 mg/dL (1.8-2.4)
[2023-08-23 10:15] LABS: PHOSPHOROUS 2.8 mg/dL (2.5-4.9)
[2023-08-23 10:16] LABS: CREATININE 1.9 mg/dL (0.55-1.3)
[2023-08-24 07:26] LABS: HEMATOCRIT 37.6 % (35.4-49); HEMOGLOBIN 12.4 GM/dL (11.7-16.9); MCH 28.3 pg (25.7-33.7); MCHC 32.9 g/dl (32.0-35.9); MEAN CELL VOLUME 86.1 fl (80-96); MEAN PLT VOLUME 8.7 fl (7.5-11.1); PLATELET COUNT 182 10^3/uL (134-434); RBC 4.37 M/mm3 (4.00-5.60); RDW 14.8 % (11.9-15.9); WHITE BLOOD COUNT 11.4 K/mm3 (4.0-10.0)
[2023-08-24 07:48] LABS: POTASSIUM 3.6 mmol/L (3.5-5.1)
[2023-08-24 08:03] LABS: CALCIUM 9.1 mg/dL (8.5-10.1)
[2023-08-24 08:04] LABS: ALBUMIN 2.5 g/dl (3.4-5.0); MAGNESIUM 1.8 mg/dL (1.8-2.4)
[2023-08-24 08:07] LABS: PHOSPHOROUS 2.7 mg/dL (2.5-4.9)
[2023-08-24 08:11] LABS: CREATININE 1.8 mg/dL (0.55-1.3)
[2023-08-24 08:12] LABS: BILIRUBIN,TOTAL 1.3 mg/dL (0.2-1)
[2023-08-24] MEDS: SODIUM CHLORIDE 1,000 ML IV SCH (16:00)
[2023-08-25 07:20] LABS: HEMATOCRIT 37.5 % (35.4-49); HEMOGLOBIN 12.3 GM/dL (11.7-16.9); MCH 28.3 pg (25.7-33.7); MCHC 32.8 g/dl (32.0-35.9); MEAN CELL VOLUME 86.2 fl (80-96); MEAN PLT VOLUME 8.9 fl (7.5-11.1); PLATELET COUNT 231 10^3/uL (134-434); RBC 4.35 M/mm3 (4.00-5.60); RDW 15.2 % (11.9-15.9); WHITE BLOOD COUNT 11.7 K/mm3 (4.0-10.0)
[2023-08-25 07:33] LABS: POTASSIUM 3.8 mmol/L (3.5-5.1)
[2023-08-25 07:41] LABS: ALBUMIN 2.4 g/dl (3.4-5.0)
[2023-08-25 07:42] LABS: MAGNESIUM 1.7 mg/dL (1.8-2.4)
[2023-08-25 07:44] LABS: CREATININE 1.7 mg/dL (0.55-1.3)
[2023-08-25 07:45] LABS: BILIRUBIN,TOTAL 0.9 mg/dL (0.2-1); TOT PROT 5.8 g/dl (6.4-8.2)
[2023-08-25] MEDS: SODIUM CHLORIDE 0.45% 1,000 ML IV SCH (09:22)
[2023-08-25] MEDS: NIFEdipine E.R. 30 MG TABLET PO SCH (09:23)
[2023-08-25] MEDS: MAGNESIUM SULF 50% (8.12 MEQ/2 ML-1 GM VIAL) IVPB ONE (09:23)
[2023-08-26] MEDS: levoFLOXacin 750 MG TABLET PO SCH (05:53)
[2023-08-26 07:26] LABS: HEMATOCRIT 36.5 % (35.4-49); HEMOGLOBIN 12.3 GM/dL (11.7-16.9); MCH 28.9 pg (25.7-33.7); MCHC 33.6 g/dl (32.0-35.9); MEAN CELL VOLUME 85.8 fl (80-96); MEAN PLT VOLUME 8.5 fl (7.5-11.1); PLATELET COUNT 277 10^3/uL (134-434); RBC 4.26 M/mm3 (4.00-5.60); RDW 15.1 % (11.9-15.9); WHITE BLOOD COUNT 10.5 K/mm3 (4.0-10.0)
[2023-08-26 07:42] LABS: POTASSIUM 3.7 mmol/L (3.5-5.1)
[2023-08-26 07:47] LABS: ALBUMIN 2.5 g/dl (3.4-5.0); BLOOD UREA NITROGEN 15.1 mg/dL (7-18); CALCIUM 9.3 mg/dL (8.5-10.1); MAGNESIUM 2.2 mg/dL (1.8-2.4)
[2023-08-26 07:50] LABS: CREATININE 1.7 mg/dL (0.55-1.3)
[2023-08-26 07:51] LABS: BILIRUBIN,TOTAL 0.7 mg/dL (0.2-1)
[2023-08-26] MEDS ORDERED: levoFLOXacin 750 MG TABLET PO SCH (10:00)
[2023-08-26] MEDS ORDERED: SODIUM CHLORIDE 0.45% 1,000 ML IV SCH (14:07)
[2023-08-26 14:45] VITALS: BP 173/80; PULSE 91; RESP 20; TEMP 99
== END 2023-08-26 16:15 | disposition home or self-care (01) | DRG 871 ==
LOC: JER 22:43 → JERBED 08-19 03:18 → J4W 08-19 12:55
PROVIDERS: ADMIT Internal Medicine; ATTEND Internal Medicine
DX: A41.50 Gram-negative sepsis, unspecified (principal); G93.41 Metabolic encephalopathy; N17.9 Acute kidney failure, unspecified; E87.20 Acidosis, unspecified; I24.89 Other forms of acute ischemic heart disease; N39.0 Urinary tract infection, site not specified; M62.82 Rhabdomyolysis; E87.0 Hyperosmolality and hypernatremia; I12.9 Hypertensive chronic kidney disease with stage 1 through stage 4 chronic kidney disease, or unspecified chronic kidney disease; N18.9 Chronic kidney disease, unspecified; N40.1 Benign prostatic hyperplasia with lower urinary tract symptoms; F03.90 Unspecified dementia, unspecified severity, without behavioral disturbance, psychotic disturbance, mood disturbance, and anxiety; N28.1 Cyst of kidney, acquired; F31.9 Bipolar disorder, unspecified; R33.9 Retention of urine, unspecified; B96.5 Pseudomonas (aeruginosa) (mallei) (pseudomallei) as the cause of diseases classified elsewhere; R50.9 Fever, unspecified; K80.80 Other cholelithiasis without obstruction; E83.42 Hypomagnesemia; R15.9 Full incontinence of feces; R33.8 Other retention of urine
CPT/HCPCS: 0241U-QW; 36415; 36600; 70450-TC; 71045-TC-FY; 72125-TC; 76700-TC; 80048; 80053; 80061; 80076; 81003; 82550; 82553; 82803; 83605; 83735; 84100; 84443; 84484; 85025; 85027; 85610; 85730; 86704; 86708; 86803; 86850; 86900; 86901; 87040; 87086; 87186; 87340; 87517; 93005; 93010; 93306-TC; 97116-GP; 97161-GP; 99285-25; J1644

== ENCOUNTER 2023-08-27 10:17 | Emergency (ER) | payer OTHER ==
[2023-08-27 10:38] VITALS: BP 160/94; PULSE 112; RESP 18; TEMP 98
== END 2023-08-27 11:52 | disposition home or self-care (01) ==
LOC: JER 10:17
DX: Z46.6 Encounter for fitting and adjustment of urinary device (principal)
CPT/HCPCS: 99282-25

== ENCOUNTER 2023-09-17 13:31 | Inpatient (IN) | payer OTHER ==
[2023-09-17 16:53] LABS: BASO % 0.8 % (0-2.0); EOS % 0.3 % (0-4.5); HEMATOCRIT 39.5 % (35.4-49); HEMOGLOBIN 13.2 GM/dL (11.7-16.9); LYMPH % 16.3 % (8-40); MCH 28.9 pg (25.7-33.7); MCHC 33.4 g/dl (32.0-35.9); MEAN CELL VOLUME 86.3 fl (80-96); MEAN PLT VOLUME 8.6 fl (7.5-11.1); MONO % 9.5 % (3.8-10.2); NEUT % 73.1 % (42.8-82.8); PLATELET COUNT 286 10^3/uL (134-434); RBC 4.58 M/mm3 (4.00-5.60); RDW 15.2 % (11.9-15.9); WHITE BLOOD COUNT 10.5 K/mm3 (4.0-10.0)
[2023-09-17 17:13] LABS: CALCIUM 9.9 mg/dL (8.5-10.1)
[2023-09-17 17:14] LABS: BLOOD UREA NITROGEN 14.2 mg/dL (7-18)
[2023-09-17 17:17] LABS: CREATININE 1.8 mg/dL (0.55-1.3)
[2023-09-17 21:27] LABS: EPI CELLS 2 /uL (0-25.1); HYALINE CASTS 0 /uL (0-3.1); URINE APPEARANCE TURBID; URINE BACTERIA 180 /uL (0-1359); URINE BILIRUBIN NEGATIVE (NEGATIVE); URINE COLOR YELLOW; URINE GLUCOSE (UA) NEGATIVE (NEGATIVE); URINE KETONE NEGATIVE (NEGATIVE); URINE LEUK ESTERASE 3+ (NEGATIVE); URINE NITRITE NEGATIVE (NEGATIVE); URINE PROTEIN 3+ (NEGATIVE); URINE RBC 1681 /uL (0-23.9); URINE WBC 5149 /uL (0-25.8)
[2023-09-18 07:45] LABS: CHLORIDE 110 mmol/L (98-107); POTASSIUM 3.8 mmol/L (3.5-5.1); SODIUM 141 mmol/L (136-145)
[2023-09-18 07:49] LABS: BLOOD UREA NITROGEN 16.1 mg/dL (7-18); CALCIUM 9.6 mg/dL (8.5-10.1)
[2023-09-18 07:50] LABS: ANION GAP 5 mmol/L (4-13); CO2 26 mmol/L (21-32); GLUCOSE,RANDOM 80 mg/dL (74-106); MAGNESIUM 1.8 mg/dL (1.8-2.4)
[2023-09-18 07:51] LABS: HEMATOCRIT 37.5 % (35.4-49); HEMOGLOBIN 12.5 GM/dL (11.7-16.9); MCH 28.5 pg (25.7-33.7); MCHC 33.3 g/dl (32.0-35.9); MEAN CELL VOLUME 85.6 fl (80-96); MEAN PLT VOLUME 8.5 fl (7.5-11.1); PLATELET COUNT 254 10^3/uL (134-434); RBC 4.38 M/mm3 (4.00-5.60); RDW 15.4 % (11.9-15.9); WHITE BLOOD COUNT 7.3 K/mm3 (4.0-10.0)
[2023-09-18 07:52] LABS: CREATININE 1.8 mg/dL (0.55-1.3); SGPT/ALT < 6 U/L (13-61)
[2023-09-18 07:53] LABS: SGOT/AST 11 U/L (15-37)
[2023-09-18 07:54] LABS: BILIRUBIN,TOTAL 1.4 mg/dL (0.2-1); TOT PROT 6.4 g/dl (6.4-8.2)
[2023-09-18 07:55] LABS: ALK PHOS 146 U/L (45-117)
[2023-09-18] MEDS: FINASTERIDE 5 MG TABLET (FP) PO SCH (10:44)
[2023-09-18] MEDS: NIFEdipine E.R. 30 MG TABLET PO SCH (10:44)
[2023-09-18] MEDS: TAMSULOSIN HCL 0.4 MG CAP PO SCH (10:44)
[2023-09-18] MEDS: ARIPiprazole 5 MG TABLET PO SCH (11:12)
[2023-09-18] MEDS: LISINOPRIL 5 MG TABLET PO SCH (15:42)
[2023-09-19 11:26] LABS: POTASSIUM 4.2 mmol/L (3.5-5.1)
[2023-09-19 11:33] LABS: CALCIUM 9.7 mg/dL (8.5-10.1)
[2023-09-19 11:34] LABS: BLOOD UREA NITROGEN 19.2 mg/dL (7-18)
[2023-09-19 11:37] LABS: CREATININE 1.8 mg/dL (0.55-1.3)
[2023-09-19] MEDS: levoFLOXacin 750 MG TABLET PO SCH (16:26)
[2023-09-20 12:36] LABS: BASO % 1.1 % (0-2.0); HEMATOCRIT 38.4 % (35.4-49); LYMPH % 29.8 % (8-40); MCH 29.3 pg (25.7-33.7); MCHC 33.7 g/dl (32.0-35.9); MEAN CELL VOLUME 86.9 fl (80-96); MEAN PLT VOLUME 8.7 fl (7.5-11.1); MONO % 7.4 % (3.8-10.2); NEUT % 59.7 % (42.8-82.8); PLATELET COUNT 225 10^3/uL (134-434); RBC 4.42 M/mm3 (4.00-5.60); RDW 15.1 % (11.9-15.9)
[2023-09-20 13:11] LABS: POTASSIUM 4.5 mmol/L (3.5-5.1)
[2023-09-20 13:19] LABS: BLOOD UREA NITROGEN 19.4 mg/dL (7-18); CALCIUM 9.9 mg/dL (8.5-10.1)
[2023-09-20 13:22] LABS: CREATININE 1.8 mg/dL (0.55-1.3)
[2023-09-20 13:23] LABS: BILIRUBIN,TOTAL 1.2 mg/dL (0.2-1); TOT PROT 6.8 g/dl (6.4-8.2)
[2023-09-20] MEDS: PIPERACILLIN/TAZOB 3.375 GM 3.375 GM in DEXTROSE 5%-WATER - 50 ML IVPB SCH (13:26)
[2023-09-20 16:11] VITALS: BMI 18.7
[2023-09-21] MEDS: LACTATED RINGERS SOLUTION 1,000 ML/1,000 ML INFUS.BAG IV SCH (04:25)
[2023-09-21] MEDS: MULTIVITAMINS (DAILY MVI) TABLET (FP) PO SCH (09:34)
[2023-09-21 09:42] LABS: INR 1.09 (0.83-1.09); PROTHROMBIN TIME (PATIENT) 12.5 SEC (9.7-13.0)
[2023-09-21 09:44] LABS: ACTIVATED PTT 37.3 SECONDS (25.2-36.5)
[2023-09-21 09:50] LABS: BASO % 0.9 % (0-2.0); EOS % 2.3 % (0-4.5); HEMATOCRIT 40.1 % (35.4-49); LYMPH % 31.7 % (8-40); MCH 28.2 pg (25.7-33.7); MCHC 32.4 g/dl (32.0-35.9); MEAN CELL VOLUME 87.1 fl (80-96); MEAN PLT VOLUME 9.2 fl (7.5-11.1); MONO % 7.4 % (3.8-10.2); NEUT % 57.7 % (42.8-82.8); PLATELET COUNT 205 10^3/uL (134-434); WHITE BLOOD COUNT 5.9 K/mm3 (4.0-10.0)
[2023-09-21 09:59] LABS: POTASSIUM 4.3 mmol/L (3.5-5.1)
[2023-09-21 10:13] LABS: BLOOD UREA NITROGEN 18.8 mg/dL (7-18); CALCIUM 9.9 mg/dL (8.5-10.1)
[2023-09-21 10:17] LABS: CREATININE 1.8 mg/dL (0.55-1.3); PHOSPHOROUS 2.6 mg/dL (2.5-4.9)
[2023-09-21 10:18] LABS: BILIRUBIN,TOTAL 1.2 mg/dL (0.2-1); TOT PROT 6.5 g/dl (6.4-8.2)
[2023-09-21] MEDS: PIPERACILLIN/TAZOB 2.25 GM 2.25 GM in DEXTROSE 5%-WATER - 50 ML IVPB SCH (14:24)
[2023-09-21] MEDS: TAMSULOSIN HCL 0.4 MG CAP PO SCH (22:06)
[2023-09-22 08:24] LABS: BASO % 0.9 % (0-2.0); EOS % 4.1 % (0-4.5); HEMATOCRIT 38.5 % (35.4-49); LYMPH % 27.1 % (8-40); MCH 29.1 pg (25.7-33.7); MCHC 33.7 g/dl (32.0-35.9); MEAN CELL VOLUME 86.4 fl (80-96); MEAN PLT VOLUME 8.8 fl (7.5-11.1); MONO % 6.8 % (3.8-10.2); NEUT % 61.1 % (42.8-82.8); PLATELET COUNT 179 10^3/uL (134-434); RBC 4.46 M/mm3 (4.00-5.60); RDW 15.1 % (11.9-15.9); WHITE BLOOD COUNT 6.3 K/mm3 (4.0-10.0)
[2023-09-22 08:42] LABS: POTASSIUM 4.4 mmol/L (3.5-5.1)
[2023-09-22 08:47] LABS: ALBUMIN 2.8 g/dl (3.4-5.0); BLOOD UREA NITROGEN 16.7 mg/dL (7-18); CALCIUM 9.7 mg/dL (8.5-10.1); MAGNESIUM 1.9 mg/dL (1.8-2.4)
[2023-09-22 08:51] LABS: CREATININE 1.7 mg/dL (0.55-1.3)
[2023-09-22 08:52] LABS: BILIRUBIN,TOTAL 1.3 mg/dL (0.2-1); TOT PROT 6.4 g/dl (6.4-8.2)
[2023-09-22] MEDS: PIPERACILLIN/TAZOB 3.375 GM 3.375 GM in DEXTROSE 5%-WATER - 50 ML IVPB SCH (10:10)
[2023-09-23 09:25] LABS: BASO % 0.7 % (0-2.0); EOS % 3.5 % (0-4.5); HEMATOCRIT 37.4 % (35.4-49); HEMOGLOBIN 12.5 GM/dL (11.7-16.9); LYMPH % 27.9 % (8-40); MCH 28.7 pg (25.7-33.7); MCHC 33.3 g/dl (32.0-35.9); MEAN PLT VOLUME 8.9 fl (7.5-11.1); MONO % 6.3 % (3.8-10.2); NEUT % 61.6 % (42.8-82.8); PLATELET COUNT 188 10^3/uL (134-434); RBC 4.35 M/mm3 (4.00-5.60); RDW 14.7 % (11.9-15.9); WHITE BLOOD COUNT 6.4 K/mm3 (4.0-10.0)
[2023-09-23 09:46] LABS: POTASSIUM 4.4 mmol/L (3.5-5.1)
[2023-09-23 10:04] LABS: ALBUMIN 2.8 g/dl (3.4-5.0)
[2023-09-23 10:06] LABS: CALCIUM 9.9 mg/dL (8.5-10.1)
[2023-09-23 10:07] LABS: CREATININE 1.6 mg/dL (0.55-1.3)
[2023-09-23 10:08] LABS: BILIRUBIN,TOTAL 1.1 mg/dL (0.2-1); TOT PROT 6.1 g/dl (6.4-8.2)
[2023-09-23 18:56] VITALS: RESP 18
[2023-09-24 07:27] LABS: EOS % 3.9 % (0-4.5); HEMATOCRIT 37.9 % (35.4-49); HEMOGLOBIN 12.6 GM/dL (11.7-16.9); LYMPH % 31.6 % (8-40); MCH 28.8 pg (25.7-33.7); MCHC 33.2 g/dl (32.0-35.9); MEAN CELL VOLUME 86.8 fl (80-96); MEAN PLT VOLUME 8.6 fl (7.5-11.1); MONO % 6.4 % (3.8-10.2); NEUT % 57.1 % (42.8-82.8); PLATELET COUNT 176 10^3/uL (134-434); RBC 4.36 M/mm3 (4.00-5.60); RDW 14.9 % (11.9-15.9)
[2023-09-24 07:44] LABS: CHLORIDE 111 mmol/L (98-107); POTASSIUM 4.4 mmol/L (3.5-5.1); SODIUM 142 mmol/L (136-145)
[2023-09-24 07:45] LABS: CALCIUM 10.2 mg/dL (8.5-10.1)
[2023-09-24 07:46] LABS: ALBUMIN 2.9 g/dl (3.4-5.0); ANION GAP 4 mmol/L (4-13); CO2 26 mmol/L (21-32); GLUCOSE,RANDOM 75 mg/dL (74-106)
[2023-09-24 07:50] LABS: CREATININE 1.8 mg/dL (0.55-1.3); SGOT/AST 8 U/L (15-37); SGPT/ALT < 6 U/L (13-61)
[2023-09-24 07:51] LABS: BILIRUBIN,TOTAL 1.2 mg/dL (0.2-1); TOT PROT 6.1 g/dl (6.4-8.2)
[2023-09-24 07:52] LABS: ALK PHOS 134 U/L (45-117)
[2023-09-24 14:38] VITALS: BP 142/73; PULSE 65; TEMP 98.8
== END 2023-09-24 15:41 | disposition home health service (06) | DRG 698 ==
LOC: JER 13:31 → JERBED 22:03 → J7W 09-18 02:16 → OBSVTOIN 09-19 11:52 → J7W 09-21 15:41
PROVIDERS: ADMIT Internal Medicine; ATTEND Nurse Practitioner Acute Care
DX: T83.511A Infection and inflammatory reaction due to indwelling urethral catheter, initial encounter (principal); E43 Unspecified severe protein-calorie malnutrition; G93.41 Metabolic encephalopathy; Q61.3 Polycystic kidney, unspecified; Z68.1 Body mass index [BMI] 19.9 or less, adult; N39.0 Urinary tract infection, site not specified; B96.5 Pseudomonas (aeruginosa) (mallei) (pseudomallei) as the cause of diseases classified elsewhere; F31.9 Bipolar disorder, unspecified; R31.0 Gross hematuria; N40.1 Benign prostatic hyperplasia with lower urinary tract symptoms; R33.8 Other retention of urine; F03.90 Unspecified dementia, unspecified severity, without behavioral disturbance, psychotic disturbance, mood disturbance, and anxiety; I12.9 Hypertensive chronic kidney disease with stage 1 through stage 4 chronic kidney disease, or unspecified chronic kidney disease; N18.9 Chronic kidney disease, unspecified; Y84.6 Urinary catheterization as the cause of abnormal reaction of the patient, or of later complication, without mention of misadventure at the time of the procedure; Y92.89 Other specified places as the place of occurrence of the external cause
CPT/HCPCS: 36415; 70450-TC; 76775-TC; 80048; 80053; 81003; 82550; 82962; 83735; 84100; 85025; 85027; 85610; 85730; 87040; 87086; 87186; 99285-25; G0378

== ENCOUNTER 2023-09-29 10:03 | Emergency (ER) | payer OTHER ==
[2023-09-29 12:04] VITALS: BP 149/93; RESP 18; TEMP 97.3; BMI 21.2
[2023-09-29 12:14] VITALS: PULSE 68
[2023-09-29] MEDS: MINERAL OIL ENEMA 133 ML ENEMA RC ONE ×2 (12:27→12:41)
[2023-09-29] MEDS: SODIUM PHOSPHATE/NA BIPHOS 133 ML ENEMA PR ONE (12:41)
== END 2023-09-29 15:15 | disposition home or self-care (01) ==
LOC: JER 10:03
DX: K59.00 Constipation, unspecified (principal)
CPT/HCPCS: 99283-25

== ENCOUNTER 2023-11-01 11:25 | Inpatient (IN) | payer OTHER ==
[2023-11-01 12:39] LABS: BASO % 1.1 % (0-2.0); EOS % 1.7 % (0-4.5); HEMOGLOBIN 13.6 GM/dL (11.7-16.9); LYMPH % 21.8 % (8-40); MCH 28.6 pg (25.7-33.7); MCHC 33.2 g/dl (32.0-35.9); MEAN CELL VOLUME 86.1 fl (80-96); MONO % 7.2 % (3.8-10.2); NEUT % 68.2 % (42.8-82.8); PLATELET COUNT 209 10^3/uL (134-434); RBC 4.76 M/mm3 (4.00-5.60); RDW 15.5 % (11.9-15.9); WHITE BLOOD COUNT 5.1 K/mm3 (4.0-10.0)
[2023-11-01 13:10] LABS: POTASSIUM 4.4 mmol/L (3.5-5.1)
[2023-11-01 13:12] LABS: CALCIUM 10.9 mg/dL (8.5-10.1)
[2023-11-01 13:13] LABS: ALBUMIN 3.5 g/dl (3.4-5.0); BLOOD UREA NITROGEN 19.4 mg/dL (7-18); MAGNESIUM 2.3 mg/dL (1.8-2.4)
[2023-11-01 13:17] LABS: CREATININE 1.9 mg/dL (0.55-1.3)
[2023-11-01 13:18] LABS: BILIRUBIN,TOTAL 0.6 mg/dL (0.2-1)
[2023-11-01 13:30] LABS: EPI CELLS 1 /uL (0-25.1); HYALINE CASTS 0 /uL (0-3.1); URINE APPEARANCE TURBID; URINE BACTERIA >9,000 /uL (0-1359); URINE BILIRUBIN NEGATIVE (NEGATIVE); URINE COLOR YELLOW; URINE GLUCOSE (UA) NEGATIVE (NEGATIVE); URINE KETONE NEGATIVE (NEGATIVE); URINE LEUK ESTERASE 3+ (NEGATIVE); URINE NITRITE NEGATIVE (NEGATIVE); URINE PROTEIN 2+ (NEGATIVE); URINE RBC 94 /uL (0-23.9); URINE UROBILINOGEN 0.2 mg/dL (0.2-1.0); URINE WBC 3466 /uL (0-25.8)
[2023-11-01] MEDS: SODIUM CHLORIDE 1,000 ML IV STA (13:37)
[2023-11-01 14:00] LABS: HIV INTERPRETATION NEGATIVE (NEGATIVE)
[2023-11-01] MEDS ORDERED: MEROPENEM 1 GM VIAL (RESTRICTED TO ID) IVPB ONE (15:12)
[2023-11-01] MEDS: MEROPENEM 1 GM in DEXTROSE 5%-WATER 100 ML IVPB ONE (15:22)
[2023-11-01] MEDS: MINERAL OIL ENEMA 133 ML ENEMA RC ONE (15:45)
[2023-11-01] MEDS ORDERED: PIPERACILLIN/TAZOB 3.375 GM 3.375 GM in DEXTROSE 5%-WATER - 50 ML IVPB SCH (18:00)
[2023-11-01] MEDS: SODIUM CHLORIDE 0.45% 1,000 ML IV SCH ×2 (18:37→23:04)
[2023-11-01] MEDS ORDERED: PIPERACILLIN/TAZOB 3.375 GM 3.375 GM/50 ML BAG IVPB ONE (19:14)
[2023-11-01] MEDS: PIPERACILLIN/TAZOB 3.375 GM 3.375 GM in DEXTROSE 5%-WATER - 50 ML IVPB SCH (19:21)
[2023-11-01] MEDS: SENNOSIDES 8.6MG TABLET (FP) PO SCH (21:36)
[2023-11-01] MEDS: HEPARIN NA (PORCINE) 5,000 UNITS/ML 1ML VIAL SQ SCH (21:36)
[2023-11-01] MEDS: hydrALAZINE HCL 10 MG TABLET PO ONE (22:58)
[2023-11-02] MEDS: hydrALAZINE HCL 25 MG TABLET (FP) PO ONE (00:59)
[2023-11-02 09:02] LABS: BASO % 0.6 % (0-2.0); EOS % 2.8 % (0-4.5); HEMATOCRIT 39.3 % (35.4-49); HEMOGLOBIN 13.3 GM/dL (11.7-16.9); LYMPH % 28.3 % (8-40); MCH 29.1 pg (25.7-33.7); MCHC 33.8 g/dl (32.0-35.9); MEAN CELL VOLUME 85.9 fl (80-96); MEAN PLT VOLUME 8.4 fl (7.5-11.1); MONO % 7.6 % (3.8-10.2); NEUT % 60.7 % (42.8-82.8); PLATELET COUNT 192 10^3/uL (134-434); RBC 4.58 M/mm3 (4.00-5.60); WHITE BLOOD COUNT 5.3 K/mm3 (4.0-10.0)
[2023-11-02 09:16] LABS: POTASSIUM 3.9 mmol/L (3.5-5.1)
[2023-11-02 09:19] LABS: BLOOD UREA NITROGEN 12.4 mg/dL (7-18); CALCIUM 10.2 mg/dL (8.5-10.1)
[2023-11-02 09:25] LABS: CREATININE 1.7 mg/dL (0.55-1.3)
[2023-11-02] MEDS: POLYETHYLENE GLYCOL (HEALTHYLAX) 3350 17 GM PACKET PO SCH (10:50)
[2023-11-02] MEDS: LISINOPRIL 5 MG TABLET PO SCH (10:51)
[2023-11-02] MEDS: TAMSULOSIN HCL 0.4 MG CAP PO SCH (10:51)
[2023-11-02] MEDS: FINASTERIDE 5 MG TABLET (FP) PO SCH (10:51)
[2023-11-02] MEDS: ARIPiprazole 5 MG TABLET PO SCH (10:52)
[2023-11-02 14:52] VITALS: BMI 18.2
[2023-11-02] MEDS: NIFEdipine E.R. 30 MG TABLET PO SCH (15:54)
[2023-11-02] MEDS: PIPERACILLIN/TAZOB 3.375 GM 3.375 GM in DEXTROSE 5%-WATER - 50 ML IVPB SCH (17:51)
[2023-11-03 08:29] LABS: BASO % 0.6 % (0-2.0); EOS % 3.3 % (0-4.5); HEMATOCRIT 39.5 % (35.4-49); HEMOGLOBIN 13.3 GM/dL (11.7-16.9); LYMPH % 26.4 % (8-40); MCHC 33.7 g/dl (32.0-35.9); MEAN PLT VOLUME 8.5 fl (7.5-11.1); MONO % 7.8 % (3.8-10.2); NEUT % 61.9 % (42.8-82.8); PLATELET COUNT 193 10^3/uL (134-434); RBC 4.59 M/mm3 (4.00-5.60); RDW 15.1 % (11.9-15.9); WHITE BLOOD COUNT 5.7 K/mm3 (4.0-10.0)
[2023-11-03 08:53] LABS: POTASSIUM 3.9 mmol/L (3.5-5.1)
[2023-11-03 09:02] LABS: BLOOD UREA NITROGEN 12.8 mg/dL (7-18)
[2023-11-03 09:06] LABS: CREATININE 1.6 mg/dL (0.55-1.3)
[2023-11-03] MEDS: CEFTRIAXONE 1 GM in DEXTROSE 5%-WATER - 50 ML IVPB SCH (13:35)
[2023-11-04] MEDS ORDERED: SENNOSIDES 8.6MG TABLET (FP) PO PRN (12:49)
[2023-11-05 09:04] LABS: BASO % 0.8 % (0-2.0); EOS % 3.2 % (0-4.5); HEMATOCRIT 40.3 % (35.4-49); HEMOGLOBIN 13.5 GM/dL (11.7-16.9); LYMPH % 30.1 % (8-40); MCH 28.9 pg (25.7-33.7); MCHC 33.4 g/dl (32.0-35.9); MEAN CELL VOLUME 86.6 fl (80-96); MEAN PLT VOLUME 8.6 fl (7.5-11.1); NEUT % 58.9 % (42.8-82.8); PLATELET COUNT 201 10^3/uL (134-434); RBC 4.66 M/mm3 (4.00-5.60); RDW 15.4 % (11.9-15.9); WHITE BLOOD COUNT 5.1 K/mm3 (4.0-10.0)
[2023-11-05 09:09] LABS: POTASSIUM 4.4 mmol/L (3.5-5.1)
[2023-11-05 09:13] LABS: BLOOD UREA NITROGEN 12.1 mg/dL (7-18); CALCIUM 10.4 mg/dL (8.5-10.1)
[2023-11-05 09:17] LABS: CREATININE 1.4 mg/dL (0.55-1.3)
[2023-11-06] MEDS ORDERED: POLYETHYLENE GLYCOL (HEALTHYLAX) 3350 17 GM PACKET PO PRN (11:38)
[2023-11-07 10:18] LABS: BASO % 1.4 % (0-2.0); EOS % 2.8 % (0-4.5); HEMATOCRIT 42.8 % (35.4-49); HEMOGLOBIN 13.9 GM/dL (11.7-16.9); LYMPH % 25.9 % (8-40); MCH 28.6 pg (25.7-33.7); MCHC 32.5 g/dl (32.0-35.9); MEAN PLT VOLUME 8.5 fl (7.5-11.1); MONO % 8.1 % (3.8-10.2); NEUT % 61.8 % (42.8-82.8); PLATELET COUNT 228 10^3/uL (134-434); RBC 4.86 M/mm3 (4.00-5.60); RDW 15.2 % (11.9-15.9); WHITE BLOOD COUNT 4.8 K/mm3 (4.0-10.0)
[2023-11-07 10:42] LABS: POTASSIUM 4.4 mmol/L (3.5-5.1)
[2023-11-07 10:51] LABS: CALCIUM 10.8 mg/dL (8.5-10.1)
[2023-11-07 10:52] LABS: BLOOD UREA NITROGEN 15.6 mg/dL (7-18)
[2023-11-07 10:55] LABS: CREATININE 1.4 mg/dL (0.55-1.3)
[2023-11-07] MEDS: hydrALAZINE HCL 25 MG TABLET (FP) PO ONE (15:21)
[2023-11-08 02:13] VITALS: RESP 18
[2023-11-08 13:08] VITALS: PULSE 69
[2023-11-08 14:36] VITALS: BP 185/78; TEMP 97.5
== END 2023-11-08 17:27 | disposition home health service (06) | DRG 698 ==
LOC: JER 11:25 → JERBED 15:37 → OBSVTOIN 16:15 → J7W 19:46
PROVIDERS: ADMIT Internal Medicine; ATTEND Nurse Practitioner
DX: T83.091A Other mechanical complication of indwelling urethral catheter, initial encounter (principal); E43 Unspecified severe protein-calorie malnutrition; N39.0 Urinary tract infection, site not specified; Q61.3 Polycystic kidney, unspecified; Z68.1 Body mass index [BMI] 19.9 or less, adult; N40.0 Benign prostatic hyperplasia without lower urinary tract symptoms; E86.0 Dehydration; I12.9 Hypertensive chronic kidney disease with stage 1 through stage 4 chronic kidney disease, or unspecified chronic kidney disease; N18.9 Chronic kidney disease, unspecified; F31.9 Bipolar disorder, unspecified; R33.8 Other retention of urine; R13.10 Dysphagia, unspecified; K59.00 Constipation, unspecified; R49.0 Dysphonia; F03.90 Unspecified dementia, unspecified severity, without behavioral disturbance, psychotic disturbance, mood disturbance, and anxiety; B96.89 Other specified bacterial agents as the cause of diseases classified elsewhere; Y83.8 Other surgical procedures as the cause of abnormal reaction of the patient, or of later complication, without mention of misadventure at the time of the procedure
CPT/HCPCS: 36415; 74176-TC; 74230-TC-FY; 80048; 80053; 81003; 83735; 85025; 86803; 87086; 87186; 87389; 92611-GN; 93005; 93010; 97116-GP; 97162-GP; 99285-25; G0378; J1644

== ENCOUNTER 2023-11-13 16:35 | Observation (INO) | payer OTHER ==
[2023-11-13 19:46] LABS: EPI CELLS 4 /uL (0-25.1); HYALINE CASTS 1 /uL (0-3.1); URINE APPEARANCE CLOUDY; URINE BACTERIA 601 /uL (0-1359); URINE BILIRUBIN NEGATIVE (NEGATIVE); URINE COLOR YELLOW; URINE GLUCOSE (UA) NEGATIVE (NEGATIVE); URINE KETONE NEGATIVE (NEGATIVE); URINE LEUK ESTERASE 3+ (NEGATIVE); URINE NITRITE POSITIVE (NEGATIVE); URINE PROTEIN 2+ (NEGATIVE); URINE RBC 130 /uL (0-23.9); URINE UROBILINOGEN 0.2 mg/dL (0.2-1.0); URINE WBC 1127 /uL (0-25.8)
[2023-11-13] MEDS ORDERED: PIPERACILLIN/TAZOB 3.375 GM 3.375 GM/50 ML BAG IVPB ONE (20:13)
[2023-11-13] MEDS: PIPERACILLIN/TAZOB 3.375 GM 3.375 GM in DEXTROSE 5%-WATER - 50 ML IVPB ONE (20:38)
[2023-11-13 21:09] LABS: EOS % 2.1 % (0-4.5); HEMATOCRIT 41.9 % (35.4-49); HEMOGLOBIN 14.1 GM/dL (11.7-16.9); LYMPH % 26.5 % (8-40); MCH 28.9 pg (25.7-33.7); MCHC 33.6 g/dl (32.0-35.9); MEAN CELL VOLUME 85.9 fl (80-96); MONO % 6.9 % (3.8-10.2); NEUT % 63.5 % (42.8-82.8); PLATELET COUNT 271 10^3/uL (134-434); RBC 4.88 M/mm3 (4.00-5.60); RDW 15.7 % (11.9-15.9); WHITE BLOOD COUNT 6.5 K/mm3 (4.0-10.0)
[2023-11-13 21:55] LABS: ALBUMIN 3.4 g/dl (3.4-5.0); CALCIUM 10.7 mg/dL (8.5-10.1)
[2023-11-13 21:56] LABS: BLOOD UREA NITROGEN 15.4 mg/dL (7-18)
[2023-11-13 21:58] LABS: CREATININE 1.7 mg/dL (0.55-1.3)
[2023-11-13 21:59] LABS: TOT PROT 7.1 g/dl (6.4-8.2)
[2023-11-14] MEDS: PIPERACILLIN/TAZOB 3.375 GM 3.375 GM in DEXTROSE 5%-WATER - 50 ML IVPB SCH (04:22)
[2023-11-14] MEDS: LISINOPRIL 5 MG TABLET PO SCH (09:22)
[2023-11-14] MEDS: TAMSULOSIN HCL 0.4 MG CAP PO SCH (09:22)
[2023-11-14] MEDS: NIFEdipine E.R. 30 MG TABLET PO SCH (09:23)
[2023-11-14] MEDS: FINASTERIDE 5 MG TABLET (FP) PO SCH (09:25)
[2023-11-14] MEDS ORDERED: ENOXAPARIN NA (PORCINE) 40 MG/0.4 ML DISP.SYRIN SQ SCH (10:00)
[2023-11-14 10:35] LABS: EOS % 1.8 % (0-4.5); HEMATOCRIT 39.9 % (35.4-49); HEMOGLOBIN 13.4 GM/dL (11.7-16.9); LYMPH % 25.2 % (8-40); MCH 29.4 pg (25.7-33.7); MCHC 33.6 g/dl (32.0-35.9); MEAN CELL VOLUME 87.5 fl (80-96); MEAN PLT VOLUME 8.6 fl (7.5-11.1); MONO % 8.2 % (3.8-10.2); NEUT % 63.8 % (42.8-82.8); PLATELET COUNT 245 10^3/uL (134-434); RBC 4.56 M/mm3 (4.00-5.60); RDW 15.6 % (11.9-15.9)
[2023-11-14 10:49] LABS: POTASSIUM 4.3 mmol/L (3.5-5.1)
[2023-11-14 10:55] LABS: BLOOD UREA NITROGEN 14.1 mg/dL (7-18)
[2023-11-14 10:57] LABS: CALCIUM 10.3 mg/dL (8.5-10.1); MAGNESIUM 1.9 mg/dL (1.8-2.4)
[2023-11-14 10:59] LABS: BILIRUBIN,TOTAL 1.2 mg/dL (0.2-1); CREATININE 1.8 mg/dL (0.55-1.3); PHOSPHOROUS 2.4 mg/dL (2.5-4.9); TOT PROT 6.3 g/dl (6.4-8.2)
[2023-11-14] MEDS: ARIPiprazole 5 MG TABLET PO SCH (11:17)
[2023-11-15 07:39] LABS: HEMATOCRIT 38.9 % (35.4-49); HEMOGLOBIN 12.9 GM/dL (11.7-16.9); MCH 28.9 pg (25.7-33.7); MCHC 33.3 g/dl (32.0-35.9); MEAN CELL VOLUME 86.7 fl (80-96); MEAN PLT VOLUME 8.3 fl (7.5-11.1); PLATELET COUNT 254 10^3/uL (134-434); RBC 4.48 M/mm3 (4.00-5.60); RDW 15.6 % (11.9-15.9); WHITE BLOOD COUNT 4.9 K/mm3 (4.0-10.0)
[2023-11-15 07:55] LABS: POTASSIUM 4.3 mmol/L (3.5-5.1)
[2023-11-15 07:57] LABS: ALBUMIN 2.9 g/dl (3.4-5.0); CALCIUM 10.1 mg/dL (8.5-10.1)
[2023-11-15 08:00] LABS: CREATININE 1.7 mg/dL (0.55-1.3)
[2023-11-15 08:02] LABS: BILIRUBIN,TOTAL 0.9 mg/dL (0.2-1)
[2023-11-15] MEDS: HEPARIN NA (PORCINE) 5,000 UNITS/ML 1ML VIAL SQ SCH (09:59)
[2023-11-15] MEDS: PIPERACILLIN/TAZOB 3.375 GM 3.375 GM in DEXTROSE 5%-WATER - 50 ML IVPB SCH (15:22)
[2023-11-16 09:15] LABS: HEMATOCRIT 39.8 % (35.4-49); HEMOGLOBIN 13.7 GM/dL (11.7-16.9); MCH 29.6 pg (25.7-33.7); MCHC 34.4 g/dl (32.0-35.9); MEAN CELL VOLUME 86.1 fl (80-96); MEAN PLT VOLUME 8.4 fl (7.5-11.1); PLATELET COUNT 278 10^3/uL (134-434); RBC 4.63 M/mm3 (4.00-5.60); RDW 15.4 % (11.9-15.9); WHITE BLOOD COUNT 4.6 K/mm3 (4.0-10.0)
[2023-11-16 09:39] LABS: POTASSIUM 4.4 mmol/L (3.5-5.1)
[2023-11-16 09:51] LABS: CALCIUM 10.4 mg/dL (8.5-10.1)
[2023-11-16 09:52] LABS: BLOOD UREA NITROGEN 11.5 mg/dL (7-18)
[2023-11-16 09:55] LABS: CREATININE 1.6 mg/dL (0.55-1.3)
[2023-11-16 09:56] LABS: TOT PROT 6.5 g/dl (6.4-8.2)
[2023-11-16 14:29] VITALS: BP 162/87; PULSE 73; RESP 73; TEMP 98.8
[2023-11-16 21:28] VITALS: BMI 19.5
== END 2023-11-16 17:50 | disposition home or self-care (01) ==
LOC: JER 16:35 → JERBED 20:36 → INTOOBSV 20:36 → UNDOADMOB 20:36 → JERBED 23:39 → J6S 23:39
PROVIDERS: ADMIT Internal Medicine; ATTEND Internal Medicine
PROC: 3E023GC Introduction of Other Therapeutic Substance into Muscle, Percutaneous Approach (ICD-10-PCS; principal; 2023-11-14)
PROC: 3E03329 Introduction of Other Anti-infective into Peripheral Vein, Percutaneous Approach (ICD-10-PCS; 2023-11-14)
PROC: 0TWB70Z Revision of Drainage Device in Bladder, Via Natural or Artificial Opening (ICD-10-PCS; 2023-11-14)
DX: T83.038A Leakage of other urinary catheter, initial encounter (principal); I12.9 Hypertensive chronic kidney disease with stage 1 through stage 4 chronic kidney disease, or unspecified chronic kidney disease; R33.8 Other retention of urine; Q61.3 Polycystic kidney, unspecified; N18.30 Chronic kidney disease, stage 3 unspecified; F31.9 Bipolar disorder, unspecified; Z87.440 Personal history of urinary (tract) infections; F03.90 Unspecified dementia, unspecified severity, without behavioral disturbance, psychotic disturbance, mood disturbance, and anxiety; Z86.16 Personal history of COVID-19; X58.XXXA Exposure to other specified factors, initial encounter; Y99.8 Other external cause status
CPT/HCPCS: 36415; 51702; 80053; 81003; 82962; 83735; 84100; 85025; 85027; 87086; 87186; 96365; 96366; 96372; 99285-25; G0378; J1644

== ENCOUNTER 2023-12-12 10:46 | Inpatient (IN) | payer OTHER ==
[2023-12-12 13:08] LABS: EPI CELLS 6 /uL (0-25.1); HYALINE CASTS 0 /uL (0-3.1); URINE APPEARANCE TURBID; URINE BACTERIA 4232 /uL (0-1359); URINE BILIRUBIN NEGATIVE (NEGATIVE); URINE COLOR YELLOW; URINE GLUCOSE (UA) NEGATIVE (NEGATIVE); URINE KETONE NEGATIVE (NEGATIVE); URINE LEUK ESTERASE 3+ (NEGATIVE); URINE NITRITE NEGATIVE (NEGATIVE); URINE PROTEIN 1+ (NEGATIVE); URINE RBC 50 /uL (0-23.9); URINE WBC 4536 /uL (0-25.8)
[2023-12-12 14:07] LABS: BASO % 0.7 % (0-2.0); HEMATOCRIT 44.8 % (35.4-49); HEMOGLOBIN 14.7 GM/dL (11.7-16.9); LYMPH % 23.2 % (8-40); MCH 28.5 pg (25.7-33.7); MCHC 32.7 g/dl (32.0-35.9); MEAN CELL VOLUME 87.1 fl (80-96); MEAN PLT VOLUME 8.3 fl (7.5-11.1); MONO % 7.2 % (3.8-10.2); NEUT % 67.9 % (42.8-82.8); PLATELET COUNT 235 10^3/uL (134-434); RBC 5.14 M/mm3 (4.00-5.60); RDW 15.4 % (11.9-15.9); WHITE BLOOD COUNT 6.4 K/mm3 (4.0-10.0)
[2023-12-12] MEDS ORDERED: PIPERACILLIN/TAZOB 4.5 GM 4.5 GM/100 ML BAG IVPB ONE ×2 (14:15→20:37)
[2023-12-12 14:24] LABS: POTASSIUM 4.3 mmol/L (3.5-5.1)
[2023-12-12 14:27] LABS: ALBUMIN 3.5 g/dl (3.4-5.0); BLOOD UREA NITROGEN 20.2 mg/dL (7-18)
[2023-12-12] MEDS: PIPERACILLIN/TAZOB 4.5 GM 4.5 GM in DEXTROSE 5%-WATER 100 ML IVPB ONE (14:27)
[2023-12-12 14:30] LABS: CREATININE 1.7 mg/dL (0.55-1.3)
[2023-12-12 14:31] LABS: BILIRUBIN,TOTAL 0.7 mg/dL (0.2-1)
[2023-12-12] MEDS: LACTATED RINGERS SOLUTION 1,000 ML/1,000 ML INFUS.BAG IV SCH (15:12)
[2023-12-12] MEDS ORDERED: PIPERACILLIN/TAZOB 4.5 GM 4.5 GM in DEXTROSE 5%-WATER 100 ML IVPB SCH (15:15)
[2023-12-12] MEDS: PIPERACILLIN/TAZOB 4.5 GM 4.5 GM in DEXTROSE 5%-WATER 100 ML IVPB SCH (20:52)
[2023-12-12] MEDS ORDERED: HEPARIN NA (PORCINE) 5,000 UNITS/ML 1ML VIAL ONE (23:25)
[2023-12-12] MEDS: HEPARIN NA (PORCINE) 5,000 UNITS/ML 1ML VIAL SQ SCH (23:43)
[2023-12-13] MEDS: TAMSULOSIN HCL 0.4 MG CAP PO SCH (08:24)
[2023-12-13 09:45] LABS: BASO % 0.9 % (0-2.0); EOS % 1.7 % (0-4.5); HEMATOCRIT 42.1 % (35.4-49); HEMOGLOBIN 13.9 GM/dL (11.7-16.9); MCH 28.2 pg (25.7-33.7); MCHC 32.9 g/dl (32.0-35.9); MEAN CELL VOLUME 85.7 fl (80-96); MEAN PLT VOLUME 8.3 fl (7.5-11.1); MONO % 6.1 % (3.8-10.2); NEUT % 65.3 % (42.8-82.8); PLATELET COUNT 254 10^3/uL (134-434); RBC 4.91 M/mm3 (4.00-5.60); RDW 15.3 % (11.9-15.9); WHITE BLOOD COUNT 6.1 K/mm3 (4.0-10.0)
[2023-12-13 09:59] LABS: POTASSIUM 4.1 mmol/L (3.5-5.1)
[2023-12-13 10:02] LABS: CALCIUM 10.7 mg/dL (8.5-10.1)
[2023-12-13 10:03] LABS: BLOOD UREA NITROGEN 14.2 mg/dL (7-18)
[2023-12-13 10:06] LABS: CREATININE 1.8 mg/dL (0.55-1.3)
[2023-12-13] MEDS: NIFEdipine E.R. 30 MG TABLET PO SCH (12:12)
[2023-12-13] MEDS: FINASTERIDE 5 MG TABLET (FP) PO SCH (12:12)
[2023-12-13] MEDS: ARIPiprazole 5 MG TABLET PO SCH (12:12)
[2023-12-13 16:18] VITALS: BMI 19.3
[2023-12-13] MEDS: PIPERACILLIN/TAZOB 4.5 GM 4.5 GM in DEXTROSE 5%-WATER 100 ML IVPB SCH (17:38)
[2023-12-13] MEDS: CEFTRIAXONE 1 GM in DEXTROSE 5%-WATER - 50 ML IVPB SCH (21:51)
[2023-12-14 08:39] LABS: BASO % 0.5 % (0-2.0); EOS % 1.6 % (0-4.5); HEMATOCRIT 40.8 % (35.4-49); HEMOGLOBIN 13.8 GM/dL (11.7-16.9); LYMPH % 24.7 % (8-40); MCH 28.8 pg (25.7-33.7); MCHC 33.8 g/dl (32.0-35.9); MEAN CELL VOLUME 85.3 fl (80-96); MEAN PLT VOLUME 8.6 fl (7.5-11.1); MONO % 7.8 % (3.8-10.2); NEUT % 65.4 % (42.8-82.8); PLATELET COUNT 249 10^3/uL (134-434); RBC 4.79 M/mm3 (4.00-5.60); RDW 15.2 % (11.9-15.9); WHITE BLOOD COUNT 6.4 K/mm3 (4.0-10.0)
[2023-12-14 08:55] LABS: POTASSIUM 4.1 mmol/L (3.5-5.1)
[2023-12-14 08:57] LABS: BLOOD UREA NITROGEN 15.8 mg/dL (7-18); CALCIUM 10.6 mg/dL (8.5-10.1); MAGNESIUM 1.9 mg/dL (1.8-2.4)
[2023-12-14 09:01] LABS: CREATININE 1.6 mg/dL (0.55-1.3)
[2023-12-14 09:02] LABS: BILIRUBIN,TOTAL 0.9 mg/dL (0.2-1); TOT PROT 6.3 g/dl (6.4-8.2)
[2023-12-14] MEDS: ARIPiprazole 5 MG TABLET PO ONE (22:57)
[2023-12-15 08:23] LABS: BASO % 0.8 % (0-2.0); EOS % 2.6 % (0-4.5); MCH 28.3 pg (25.7-33.7); MCHC 32.6 g/dl (32.0-35.9); MEAN CELL VOLUME 86.9 fl (80-96); MEAN PLT VOLUME 9.1 fl (7.5-11.1); MONO % 7.3 % (3.8-10.2); NEUT % 59.3 % (42.8-82.8); PLATELET COUNT 221 10^3/uL (134-434)
[2023-12-15 08:34] LABS: POTASSIUM 4.3 mmol/L (3.5-5.1)
[2023-12-15 08:44] LABS: ALBUMIN 2.7 g/dl (3.4-5.0); BLOOD UREA NITROGEN 15.4 mg/dL (7-18); CALCIUM 10.1 mg/dL (8.5-10.1)
[2023-12-15 08:47] LABS: CREATININE 1.6 mg/dL (0.55-1.3)
[2023-12-15 08:49] LABS: BILIRUBIN,TOTAL 0.7 mg/dL (0.2-1); TOT PROT 5.9 g/dl (6.4-8.2)
[2023-12-15] MEDS: ARIPiprazole 10 MG TABLET PO SCH (10:56)
[2023-12-15] MEDS: CEPHALEXIN MONOHYDRATE 500 MG CAPSULE (UD) PO SCH (13:44)
[2023-12-16 08:21] LABS: BASO % 0.8 % (0-2.0); EOS % 1.9 % (0-4.5); HEMATOCRIT 39.1 % (35.4-49); HEMOGLOBIN 13.1 GM/dL (11.7-16.9); MCH 28.5 pg (25.7-33.7); MCHC 33.4 g/dl (32.0-35.9); MEAN CELL VOLUME 85.1 fl (80-96); MEAN PLT VOLUME 8.3 fl (7.5-11.1); MONO % 8.6 % (3.8-10.2); NEUT % 61.7 % (42.8-82.8); PLATELET COUNT 247 10^3/uL (134-434); RBC 4.59 M/mm3 (4.00-5.60); RDW 15.3 % (11.9-15.9); WHITE BLOOD COUNT 6.1 K/mm3 (4.0-10.0)
[2023-12-16 08:30] LABS: ALBUMIN 2.8 g/dl (3.4-5.0); BLOOD UREA NITROGEN 14.7 mg/dL (7-18); CALCIUM 10.3 mg/dL (8.5-10.1); MAGNESIUM 2.2 mg/dL (1.8-2.4)
[2023-12-16 08:34] LABS: CREATININE 1.5 mg/dL (0.55-1.3)
[2023-12-16 08:35] LABS: BILIRUBIN,TOTAL 0.7 mg/dL (0.2-1)
[2023-12-17 02:56] VITALS: RESP 18
[2023-12-18] MEDS: SULFAMETHOXAZOLE/TRIMETHOPRIM 400MG/80MG S.S. TABLET PO SCH (22:42)
[2023-12-20 06:58] VITALS: TEMP 98.2
[2023-12-20 10:20] LABS: POTASSIUM 4.5 mmol/L (3.5-5.1)
[2023-12-20 10:25] LABS: BLOOD UREA NITROGEN 28.6 mg/dL (7-18); CALCIUM 10.8 mg/dL (8.5-10.1)
[2023-12-20 10:28] LABS: CREATININE 1.6 mg/dL (0.55-1.3)
[2023-12-20 15:38] VITALS: BP 165/74; PULSE 70
== END 2023-12-20 15:56 | DRG 699 ==
LOC: JER 10:46 → JERBED 14:44 → J8W 12-13 01:27
PROVIDERS: ADMIT Internal Medicine; ATTEND Nurse Practitioner Acute Care
DX: T83.511A Infection and inflammatory reaction due to indwelling urethral catheter, initial encounter (principal); E44.0 Moderate protein-calorie malnutrition; Z68.1 Body mass index [BMI] 19.9 or less, adult; Q61.2 Polycystic kidney, adult type; N39.0 Urinary tract infection, site not specified; Y84.6 Urinary catheterization as the cause of abnormal reaction of the patient, or of later complication, without mention of misadventure at the time of the procedure; Y92.89 Other specified places as the place of occurrence of the external cause; I12.9 Hypertensive chronic kidney disease with stage 1 through stage 4 chronic kidney disease, or unspecified chronic kidney disease; N18.30 Chronic kidney disease, stage 3 unspecified; N40.1 Benign prostatic hyperplasia with lower urinary tract symptoms; R33.8 Other retention of urine; F03.90 Unspecified dementia, unspecified severity, without behavioral disturbance, psychotic disturbance, mood disturbance, and anxiety; F31.9 Bipolar disorder, unspecified; W88.8XXA Exposure to other ionizing radiation, initial encounter; B95.2 Enterococcus as the cause of diseases classified elsewhere
CPT/HCPCS: 36415; 71045-TC-FY; 80048; 80053; 81003; 83735; 85025; 87086; 87186; 87635; 93005; 93010; 97116-GP; 97161-GP; 99285-25; J1644

== ENCOUNTER 2024-06-02 12:25 | Emergency (ER) | payer OTHER ==
[2024-06-02 12:32] VITALS: PULSE 96; RESP 18; TEMP 97.9; BMI 21.2
[2024-06-02 13:22] VITALS: BP 162/85
== END 2024-06-02 13:30 | disposition home or self-care (01) ==
LOC: JER 12:25
DX: I12.9 Hypertensive chronic kidney disease with stage 1 through stage 4 chronic kidney disease, or unspecified chronic kidney disease (principal); N18.9 Chronic kidney disease, unspecified
CPT/HCPCS: 93005; 93010; 99283-25

== ENCOUNTER 2024-06-08 10:29 | Emergency (ER) | payer OTHER ==
[2024-06-08 11:05] VITALS: TEMP 98.2; BMI 21.2
[2024-06-08 11:37] VITALS: BP 164/78; PULSE 68; RESP 18
== END 2024-06-08 11:55 | disposition home or self-care (01) ==
LOC: JER 10:29
DX: I10 Essential (primary) hypertension (principal)
CPT/HCPCS: 99283-25

== ENCOUNTER 2024-06-10 15:19 | Inpatient (IN) | payer OTHER ==
[2024-06-10 16:51] LABS: ABSOLUTE IMMATURE GRANULOCYTES 0.01 x10^3/uL (0.0-0.031); BASOPHILS # 0.01 x10^3/uL (0.01-0.08); EOSINOPHIL % 0.6 % (0.8-7.0); EOSINOPHILS # 0.04 x10^3/uL (0.04-0.54); HEMATOCRIT 45.5 % (40.1-51.0); HEMOGLOBIN 14.6 g/dL (13.7-17.5); MCHC 32.1 g/dl (32.3-36.5); MEAN CELL VOLUME 85.7 fl (79.0-92.2); MEAN PLT VOLUME 11.5 fl (9.4-12.4); MONOCYTE # 0.46 x10^3/uL (0.30-0.82); MONOCYTE % 7.2 % (5.3-12.2); PLATELET COUNT 208 x10^3/uL (163-337)
[2024-06-10 16:55] LABS: EPI CELLS 3 /uL (0-25.1); HYALINE CASTS 0 /uL (0-3.1); PH,URINE 5.5 (5.0-8.0); URINE APPEARANCE CLOUDY; URINE BACTERIA 7110 /uL (0-1359); URINE BILIRUBIN NEGATIVE (NEGATIVE); URINE COLOR YELLOW; URINE GLUCOSE (UA) NEGATIVE (NEGATIVE); URINE KETONE NEGATIVE (NEGATIVE); URINE LEUK ESTERASE 3+ (NEGATIVE); URINE NITRITE POSITIVE (NEGATIVE); URINE PROTEIN 1+ (NEGATIVE); URINE RBC 22 /uL (0-23.9); URINE UROBILINOGEN 0.2 mg/dL (0.2-1.0); URINE WBC 1138 /uL (0-25.8)
[2024-06-10 17:00] LABS: INR 1.13 (0.83-1.09); PROTHROMBIN TIME (PATIENT) 12.3 SEC (9.7-13.0)
[2024-06-10 17:14] LABS: CHLORIDE 111 mmol/L (98-107); POTASSIUM 4.4 mmol/L (3.5-5.1); SODIUM 143 mmol/L (136-145)
[2024-06-10 17:16] LABS: BLOOD UREA NITROGEN 26.5 mg/dL (7-18)
[2024-06-10 17:17] LABS: ALBUMIN 3.1 g/dl (3.4-5.0); ANION GAP 6 mmol/L (4-13); CO2 25 mmol/L (21-32); GLUCOSE,RANDOM 95 mg/dL (74-106); MAGNESIUM 2.2 mg/dL (1.8-2.4)
[2024-06-10 17:19] LABS: SGPT/ALT < 6 U/L (13-61)
[2024-06-10 17:20] LABS: CREATININE 2.1 mg/dL (0.55-1.3); PHOSPHOROUS 2.4 mg/dL (2.5-4.9); SGOT/AST 11 U/L (15-37)
[2024-06-10 17:21] LABS: BILIRUBIN,TOTAL 0.6 mg/dL (0.2-1); TOT PROT 6.8 g/dl (6.4-8.2)
[2024-06-10 17:22] LABS: ALK PHOS 208 U/L (45-117)
[2024-06-10] MEDS ORDERED: PIPERACILLIN/TAZOB 4.5 GM 4.5 GM/100 ML BAG IVPB ONE (17:39)
[2024-06-10] MEDS: PIPERACILLIN/TAZOB 4.5 GM 4.5 GM in DEXTROSE 5%-WATER 100 ML IVPB ONE (17:42)
[2024-06-10] MEDS: LACTATED RINGERS SOLUTION 1000 ML INFUS.BAG IV ONE (18:35)
[2024-06-10] MEDS: HEPARIN NA (PORCINE) 5,000 UNITS/ML 1ML VIAL SQ SCH (23:25)
[2024-06-10] MEDS: LACTATED RINGERS SOLUTION 1,000 ML/1,000 ML INFUS.BAG IV SCH (23:27)
[2024-06-11] MEDS: PIPERACILLIN/TAZOB 2.25 GM 2.25 GM in DEXTROSE 5%-WATER - 50 ML IVPB SCH ×2 (02:55→14:15)
[2024-06-11 05:50] VITALS: BMI 21.1
[2024-06-11 08:21] LABS: ABSOLUTE IMMATURE GRANULOCYTES 0.01 x10^3/uL (0.0-0.031); BASOPHILS # 0.03 x10^3/uL (0.01-0.08); EOSINOPHIL % 0.9 % (0.8-7.0); EOSINOPHILS # 0.06 x10^3/uL (0.04-0.54); HEMATOCRIT 48.1 % (40.1-51.0); HEMOGLOBIN 15.3 g/dL (13.7-17.5); MCHC 31.8 g/dl (32.3-36.5); MEAN CELL VOLUME 85.1 fl (79.0-92.2); MEAN PLT VOLUME 11.1 fl (9.4-12.4); MONOCYTE # 0.52 x10^3/uL (0.30-0.82); PLATELET COUNT 192 x10^3/uL (163-337); RDW 13.5 % (12.2-16.6)
[2024-06-11] MEDS ORDERED: TAMSULOSIN HCL 0.4 MG CAP PO SCH (08:30)
[2024-06-11 08:34] LABS: POTASSIUM 4.3 mmol/L (3.5-5.1)
[2024-06-11 08:42] LABS: BLOOD UREA NITROGEN 23.9 mg/dL (7-18)
[2024-06-11 08:44] LABS: BILIRUBIN,TOTAL 0.9 mg/dL (0.2-1); TOT PROT 6.7 g/dl (6.4-8.2)
[2024-06-11 08:45] LABS: ALBUMIN 3.1 g/dl (3.4-5.0); CALCIUM 9.9 mg/dL (8.5-10.1); CREATININE 1.8 mg/dL (0.55-1.3); MAGNESIUM 2.2 mg/dL (1.8-2.4)
[2024-06-11 08:46] LABS: PHOSPHOROUS 2.6 mg/dL (2.5-4.9)
[2024-06-11] MEDS: NIFEdipine E.R. 30 MG TABLET PO SCH (09:07)
[2024-06-11] MEDS: ARIPiprazole 5 MG TABLET PO SCH (09:07)
[2024-06-11] MEDS: FINASTERIDE 5 MG TABLET (FP) PO SCH (09:07)
[2024-06-11] MEDS ORDERED: PIPERACILLIN/TAZOB 2.25 GM 2.25 GM in DEXTROSE 5%-WATER - 50 ML IVPB SCH (15:00)
[2024-06-11] MEDS ORDERED: PIPERACILLIN/TAZOB 2.25 GM 2.25 GM/50 ML BAG IVPB SCH (15:00)
[2024-06-11] MEDS: PIPERACILLIN/TAZOB 2.25 GM 2.25 GM/50 ML BAG IVPB SCH (17:22)
[2024-06-11] MEDS: TAMSULOSIN HCL 0.4 MG CAP PO SCH (21:10)
[2024-06-11 21:33] VITALS: RESP 18
[2024-06-12 08:11] LABS: ABSOLUTE IMMATURE GRANULOCYTES 0.02 x10^3/uL (0.0-0.031); BASOPHILS # 0.02 x10^3/uL (0.01-0.08); EOSINOPHIL % 1.9 % (0.8-7.0); EOSINOPHILS # 0.11 x10^3/uL (0.04-0.54); HEMATOCRIT 44.9 % (40.1-51.0); HEMOGLOBIN 14.1 g/dL (13.7-17.5); MCHC 31.4 g/dl (32.3-36.5); MEAN CELL VOLUME 85.5 fl (79.0-92.2); MEAN PLT VOLUME 11.4 fl (9.4-12.4); MONOCYTE # 0.46 x10^3/uL (0.30-0.82); PLATELET COUNT 193 x10^3/uL (163-337); RDW 13.7 % (12.2-16.6)
[2024-06-12 08:39] LABS: POTASSIUM 4.1 mmol/L (3.5-5.1)
[2024-06-12 08:48] LABS: BLOOD UREA NITROGEN 20.8 mg/dL (7-18); CALCIUM 9.6 mg/dL (8.5-10.1)
[2024-06-12 08:49] LABS: ALBUMIN 2.8 g/dl (3.4-5.0); MAGNESIUM 2.2 mg/dL (1.8-2.4)
[2024-06-12 08:52] LABS: CREATININE 1.6 mg/dL (0.55-1.3); PHOSPHOROUS 2.6 mg/dL (2.5-4.9)
[2024-06-12 08:53] LABS: BILIRUBIN,TOTAL 0.7 mg/dL (0.2-1); TOT PROT 6.4 g/dl (6.4-8.2)
[2024-06-13 08:41] VITALS: BP 154/75; PULSE 54; TEMP 97.6
== END 2024-06-13 11:25 | disposition home or self-care (01) | DRG 690 ==
LOC: JER 15:19 → JERBED 15:53 → J6S 22:22
PROVIDERS: ADMIT Internal Medicine; ATTEND Internal Medicine
DX: N39.0 Urinary tract infection, site not specified (principal); N17.9 Acute kidney failure, unspecified; N40.1 Benign prostatic hyperplasia with lower urinary tract symptoms; I12.9 Hypertensive chronic kidney disease with stage 1 through stage 4 chronic kidney disease, or unspecified chronic kidney disease; F03.90 Unspecified dementia, unspecified severity, without behavioral disturbance, psychotic disturbance, mood disturbance, and anxiety; F31.9 Bipolar disorder, unspecified; N18.30 Chronic kidney disease, stage 3 unspecified; R33.9 Retention of urine, unspecified
CPT/HCPCS: 0241U-QW; 36415; 70450-TC; 71045-TC-FY; 76775-TC; 76856-TC; 80053; 81003; 82550; 82962; 83735; 84100; 84484; 85025; 85610; 85730; 87086; 87186; 93005; 93010; 97116-GP; 97161-GP; 99285-25; J1644

== ENCOUNTER 2024-06-18 11:27 | Emergency (ER) | payer OTHER ==
[2024-06-18 11:33] VITALS: BP 165/82; PULSE 76; RESP 18; TEMP 97.7; BMI 24.3
== END 2024-06-18 13:26 | disposition home or self-care (01) ==
LOC: JER 11:27
PROC: 0T2BX0Z Change Drainage Device in Bladder, External Approach (ICD-10-PCS; principal; 2024-06-18)
DX: T83.021A Displacement of indwelling urethral catheter, initial encounter (principal)
CPT/HCPCS: 51702; 99283-25